=== PATIENT | male | born 1975 | race Caucasian/White ===

== ENCOUNTER 2024-05-09 11:51 | Inpatient (IN) | payer OTHER ==
[~2024-05-09] VITALS: Ht 185.4 cm; Wt 83.9 kg
[2024-05-09] MEDS ORDERED: HYDROmorphone HCl/Pf 1MG SYR IV ONE ×2 (12:10→13:20)
[2024-05-09 12:17] LABS: BASOPHILS ABSOLUTE AUTO 0.09 K/mm3 (0.00-0.23); BASOPHILS PERCENT AUTO 1 % (0-2); EOSINOPHILS ABSOLUTE AUTO 0.05 K/mm3 (0.00-0.68); EOSINOPHILS PERCENT AUTO 1 % (0-6); Hematocrit 33.1 % (37.0-53.0); Hemoglobin 11.8 g/dL (13.5-17.5); IMMATURE GRAN ABSOLUTE AUTO 0.04 K/mm3 (0.00-0.10); IMMATURE GRAN PERCENT AUTO 1 % (0-1); LYMPHOCYTES ABSOLUTE AUTO 0.96 K/mm3 (0.84-5.20); LYMPHOCYTES PERCENT AUTO 14 % (21-46); MONOCYTES ABSOLUTE AUTO 0.76 K/mm3 (0.16-1.47); MONOCYTES PERCENT AUTO 11 % (4-13); Mean Corpuscular HGB 30.8 pg (26.0-34.0); Mean Corpuscular HGB Conc 35.6 g/dL (31.5-36.5); Mean Corpuscular Volume 86 fL (80-100); Mean Platelet Volume 8.9 fL (9.1-12.4); NEUTROPHILS ABSOLUTE AUTO 5.21 K/mm3 (1.96-9.15); NEUTROPHILS PERCENT AUTO 73 % (41-73); Platelet Count 141 K/mm3 (150-400); RDW Coefficient Variation 12.5 % (11.7-14.2); RDW Standard Deviation 39.1 fL (35.1-46.3); Red Blood Cell Count 3.83 M/mm3 (4.30-5.90); White Blood Cell Count 7.11 K/mm3 (4.00-11.30)
[2024-05-09 12:50] LABS: Albumin, Blood 2.9 g/dL (3.4-5.0); Albumin/Globulin Ratio 0.7 (0.8-1.8); Bun/Creatinine Ratio 10.1 (12.0-20.0); C-Reactive Protein, High Sens. 30.5 mg/dL (0.000-3.000); Calcium, Blood 8.7 mg/dL (8.5-10.1); Creatinine, Blood 0.5 mg/dL (0.60-1.20); Globulin, Blood 4.4 g/dL (2.2-4.0); Potassium, Blood 3.2 mmol/L (3.5-5.5); Total Protein, Blood 7.3 g/dL (6.4-8.2)
[2024-05-09] MEDS ORDERED: Ketorolac Tromethamine 15mg Vial IV ONE (13:15)
[2024-05-09] MEDS ORDERED: Ketamine HCL 10 MG in NS 100 ML IV ONE (13:20)
[2024-05-09] MEDS ORDERED: CeFAZolin Sodium 2,000 MG in NS 100 ML IV ONE (13:55)
[2024-05-09] MEDS ORDERED: NS KCl 20mEq 1,000 ML IV SCH (15:15)
[2024-05-09] MEDS ORDERED: Ondansetron HCl 2 MG / ML 2ML Vial IV PRN (15:15)
[2024-05-09] MEDS ORDERED: fentaNYL citrate 50 MCG/ML 30MLSYR IV PRN (15:50)
[2024-05-09] MEDS ORDERED: HYDROmorphone 1 MG/ML 30 ML Bag IV PRN (16:00)
[2024-05-09 16:24] VITALS: BP 127/86
[2024-05-09] MEDS ORDERED: OXYC15ER PO (17:35)
[2024-05-09] MEDS ORDERED: CREON DR 12,001 EACH PO (17:35)
[2024-05-09] MEDS ORDERED: FAMO40 PO (17:36)
--- NOTE | 2024-05-09 17:55 | NUR ---
ARRIVED FROM ED VIA BA, AWAKE, A&OX4, C/O PAIN 10/10 ON R HIP AND R FOOT, REPORTS HAVING SOME NUMBNESS ON R LEG, STATES ER PROVIDER WAS MADE AWARE, R FOOT APPEARS SWOLLEN AND RED, PT REPORTS HE HAD SURGERY ON R FOOT EARLIER THIS YEAR AND WAS IN A BOOT AND HAS FALLEN TWICE SINCE, CAP REFILL 3 SEC ON R FOOT, ABLE TO MOVE TOES AND ABLE TO FEEL TOUCH, PT USING MANAGER MATH FENTANYL FOR PAIN CONTROL, ORIENTED TO ROOM AND CALL SYSTEM, ICE TO R HIP.
--- NOTE | 2024-05-09 19:56 | NUR ---
PAIN PT REPORTED INADEQUATE PAIN RELIEF WITH FENTANYL ASSOCIATE PROFESSOR OF LITERACY. SPOKE WITH YIGN FITZPATRICK NP. AND MADE HIM AWARE OF PT ALLERGIES. HE ORDERED OXYCODONE 5 MG Q 4HR PRN. PT REPORTS HE HAS TAKEN OXYCODONE BEFORE WITH NO ISSUES. AND WOULD LIKE TO TRY THE OXYCODONE WITH FENTANYL ASSOCIATE PROFESSOR OF LITERACY FOR BETTER PAIN CONTROL.
[2024-05-09] MEDS ORDERED: OxyCODONE HCL 5 MG TAB PO PRN (20:00)
[2024-05-09 20:14] VITALS: BP 123/68
[2024-05-09] MEDS ORDERED: Lactobacil 2-S.Thermo-Bifido 1 1 Cap PO SCH (21:00)
[2024-05-09] MEDS ORDERED: Famotidine 10 MG/ML 2ML Vial IV SCH (21:00)
[2024-05-09] MEDS ORDERED: CeFAZolin Sodium 2,000 MG in NS 100 ML IV SCH (22:00)
[2024-05-09] MEDS ORDERED: HydrOXYzine Pamoate 25 MG Cap PO PRN (22:10)
[2024-05-09] MEDS ORDERED: HYDROmorphone HCl 2 MG Tab PO PRN (22:10)
--- NOTE | 2024-05-09 22:10 | NUR ---
PAIN MANAGEMENT PT REPORTS THAT OXYCODONE WITH FENTANYL CODIFIER HAS BEEN INEFFECTIVE FOR PAIN. PT STILL REPORTING SEVERE PAIN. REACHED OUT AGAIN TO YING FITZPATRICK NP. REGARDING PT PAIN. NOTIFIED HIM THAT PAIN HAS NOT BEEN MANANGED WITH ABOVE INTERVENTIONS. MEDICATION ORDERED FOR ANXIETY. OXYCODONE DC'D, AND PO DILAUDID ORDERED INSTEAD. PT HAS RECEIVED DILAUDID IN ER. FENTANYL CODIFIER TO BE CONTINUED PER ORDERS.
[2024-05-10 03:18] VITALS: BP 159/90
[2024-05-10 03:33] LABS: Hematocrit 32.5 % (37.0-53.0); Hemoglobin 11.4 g/dL (13.5-17.5); Mean Corpuscular HGB 30.5 pg (26.0-34.0); Mean Corpuscular HGB Conc 35.1 g/dL (31.5-36.5); Mean Corpuscular Volume 87 fL (80-100); Platelet Count 121 K/mm3 (150-400); RDW Coefficient Variation 12.4 % (11.7-14.2); RDW Standard Deviation 39.5 fL (35.1-46.3); Red Blood Cell Count 3.74 M/mm3 (4.30-5.90); White Blood Cell Count 6.71 K/mm3 (4.00-11.30)
[2024-05-10 03:57] LABS: Magnesium, Blood 1.3 mg/dL (1.6-2.4)
[2024-05-10 03:58] LABS: Albumin, Blood 2.6 g/dL (3.4-5.0); Albumin/Globulin Ratio 0.6 (0.8-1.8); Bun/Creatinine Ratio 13.2 (12.0-20.0); Calcium, Blood 8.2 mg/dL (8.5-10.1); Creatinine, Blood 0.45 mg/dL (0.60-1.20); Total Protein, Blood 6.6 g/dL (6.4-8.2)
--- NOTE | 2024-05-10 06:01 | NUR ---
SHIFT SUMMARY PT ER ADMIT YESTERDAY AFTERNOON FOR R HIP FRACTURE. PT WAS VERY PAINFUL AT THE START OF THE SHIFT, AND PAIN MANAGEMENT WAS DIFFICULT. MEDICATIONS WERE SUCCESSFULLY MANAGED THIS SHIFT FOR BETTER PAIN CONTROL. PT CONTINUES ON FENTANYL CURRICULUM AND ASSESSMENT DIRECTOR, AND PO DILAUDID PRN FOR BREAKTRHOUGH PAIN. PLAN IS FOR POSSIBLE SURGERY TODAY. PT HAS BEEN NPO SINCE MIDNIGHT. VITALS ARE STABLE. IVF INFUSING. BED IN LOWEST POSITION, CALL LIGHT WITHIN REACH.
[2024-05-10] MEDS ORDERED: NS 250 ML IV PRN (06:10)
[2024-05-10 07:13] VITALS: BP 145/86
[2024-05-10] MEDS ORDERED: Magnesium Sulf 2 GM/Water 50ML 50 ML IV STA (07:41)
[2024-05-10] MEDS ORDERED: Potassium Chloride 40 MEQ in NS 250 ML IV ONE (07:45)
[2024-05-10] MEDS ORDERED: Polyethylene Glycol 3350 17 gm PO PRN (14:00)
[2024-05-10] MEDS ORDERED: HYDROmorphone HCl 2 MG Tab PO PRN (14:00)
[2024-05-10 16:02] VITALS: BP 155/89
--- NOTE | 2024-05-10 18:47 | NUR ---
SHIFT SUMMARY PT A&OX4, VSS/RA, FOUZIA PO, VOIDING/URINAL, BEDREST, PAIN MANAGED WITH DISPATCHER MAINTENANCE SERVICE+PO DIL 2 MG TAB, PLAN FOR NPO MN AND O.R. IN TOMORROW, IVF/ABX PER EMAR. WILL REPORT TO ONCOMING NOC RN.
[2024-05-10 20:07] VITALS: BP 144/80
[2024-05-10] MEDS ORDERED: Docusate Sodium/Senna 1 Tab PO SCH (21:00)
[2024-05-11 04:21] VITALS: BP 128/80
[2024-05-11 04:27] LABS: Magnesium, Blood 1.6 mg/dL (1.6-2.4)
[2024-05-11 04:28] LABS: Bun/Creatinine Ratio 12.7 (12.0-20.0); Calcium, Blood 8.4 mg/dL (8.5-10.1); Creatinine, Blood 0.47 mg/dL (0.60-1.20); Potassium, Blood 3.5 mmol/L (3.5-5.5)
[2024-05-11 07:17] VITALS: BP 141/82
--- NOTE | 2024-05-11 07:26 | NUR ---
SUMMARY PT NPO SINCE MIDNOC,CIRC CKS INTACT,REQUIRING FENT AND DILAUDID PO,VOIDING AND PENDING OR TODAY.
[2024-05-11 15:07] VITALS: BP 137/88
[2024-05-11] MEDS ORDERED: OxyCODONE HCL 5 MG TAB PO SCH (18:00)
[2024-05-11] MEDS ORDERED: Acetaminophen 500 MG Tab PO PRN (18:00)
--- NOTE | 2024-05-11 18:17 | NUR ---
SHIFT SUMMARY S/P R HIP FX WITH R FOOT FX, PLAN FOR OR TOMORROW. PO DILAUDID, PO OXY, AND FENT PAVER LAYER IN PLACE WITH NO DEPRESSION OF RESP SYSTEM, PT CONSISTENTLY REPORTS 8-10 ON 0-10 PAIN SCALE BUT DOES NOT APPEAR TO BE AT THAT RATING USING OTHER PAIN SCALES (FACE OR FLACC). NO ACUTE EVENTS THIS SHIFT, CALL LIGHT IN REACH.
[2024-05-11 20:07] VITALS: BP 127/73
[2024-05-12] VITALS (19 sets, daily range): BP systolic 86–146; BP diastolic 53–92
--- NOTE | 2024-05-12 05:42 | NUR ---
SHIFT SUMMARY NO ACUTE CHANGES THIS SHIFT. RLE REMAINS ELEVATED ON PILLOWS. FENTANYL DISTRIBUTION ASSOCIATE + ORAL CASIMIRO + ORAL DILAUDID FOR PAIN CONTROL. CONT BIOX IN PLACE. PT USING URINAL TO VOID. NPO FOR POSSIBLE PROCEDURE TODAY. VSS. USES CALL LIGHT APPROPRIATELY.
[2024-05-12] MEDS ORDERED: Ketorolac Tromethamine 30mg Vial IV PRN (08:20)
[2024-05-12] MEDS ORDERED: OxyCODONE HCL 5 MG TAB PO PRN (11:02)
--- NOTE | 2024-05-12 11:08 | NUR ---
Pt. is awake in bed and welcomes my visit. Pt. displays evidence of having pain, and at least twice during my visit pushed his medicine button. Faclitated a life review. Pt. verbalized some difficult circumstances in his life but also verbalized some bad experiences with the worship. Listen with empathy and a calming presence. While Pt. was not comfortable with this helicopter officer praying for him, Pt. gave this helicopter officer permission to pray for him "on my own time," which I have done. Pt. verbalized graitude for the spiritual care visit and welcomed this helicopter officer to return.
[2024-05-12] MEDS ORDERED: Lactated Ringer's 1,000 ML IV SCH (12:00)
[2024-05-12] MEDS ORDERED: Tranexamic Acid 100 ML IV SCH ×2 (12:20→12:25)
--- NOTE | 2024-05-12 12:37 | NUR ---
PT HAS 20G IV TO LEFT FOREARM THAT FLUSHES WELL AND FLOWS TO GRAVITY.
--- NOTE | 2024-05-12 12:41 | NUR ---
PT BROUGHT FROM FLOOR TO DAY SURGERY FOR PROCEDURE. VSS. History, Chart, Medications and Allergies reviewed before start of procedure. Lungs clear T/O to Auscultation. Patient confirms NPO status and agrees with scheduled surgery. Pre-Op teaching done. Pt verbalizes understanding. PT BELONGINGS IN PERSONAL ROOM ON SURGICAL FLOOR.
--- NOTE | 2024-05-12 13:01 | NUR ---
Assumed pt care. Report from mary Prater. Pt reports 9/10 right hip pain. No prep done, however PAS and TEDS at bedside. Pt noted to have yellow sclera and skin appears slightly jaundiced as well.
[2024-05-12] MEDS ORDERED: Dexamethasone Sod Phos 10 MG/ML 1ML VIAL ONE (13:27)
[2024-05-12] MEDS ORDERED: propofoL 60 ML IV ONE (13:27)
[2024-05-12] MEDS ORDERED: Ondansetron HCl 2 MG / ML 2ML Vial ONE ×2 (13:27→17:16)
[2024-05-12] MEDS ORDERED: Midazolam HCl 1MG / ML 2ML Vial ONE (13:31)
[2024-05-12] MEDS ORDERED: FentaNYL Citrate 50 MCG/ML 2 ML Injection ONE ×3 (13:31→17:13)
--- NOTE | 2024-05-12 13:42 | NUR ---
DR. BARRIOS AT BEDSIDE. TIME OUT DONE FOR RIGHT FASCIA/ILIAC BLOCK. PT HR, SPO2, AND BP MONITORED THROUGH OUT PROCEDURE. PT PLACED ON 2 LITERS NASAL CANULA AND MAINTAINED SATS>90% PT GIVEN A TOTAL OF 2 VERSED AND 50 MCG OF FENTANYL FOR PROCEDURE.
[2024-05-12] MEDS ORDERED: Phenylephrine HCl 100 MCG/ML-NS 10MLSYR (1MG/10ML) ONE (14:29)
[2024-05-12] MEDS ORDERED: HYDROmorphone HCl/Pf 1MG SYR ONE (14:53)
--- NOTE | 2024-05-12 14:57 | NUR ---
05/12/24 [address] BARRIOS ANESTHESIA RECORD FOR BLOCK DONE IN PREOP.
[2024-05-12] MEDS ORDERED: Vasopressin 20 UNITS/ML 1ML Vial ONE (15:17)
[2024-05-12 16:19] LABS: Hematocrit 31.1 % (37.0-53.0); Hemoglobin 10.7 g/dL (13.5-17.5); Mean Corpuscular HGB 31.1 pg (26.0-34.0); Mean Corpuscular HGB Conc 34.4 g/dL (31.5-36.5); Mean Corpuscular Volume 90 fL (80-100); Mean Platelet Volume 9.1 fL (9.1-12.4); Platelet Count 130 K/mm3 (150-400); RDW Coefficient Variation 13.1 % (11.7-14.2); RDW Standard Deviation 42.5 fL (35.1-46.3); Red Blood Cell Count 3.44 M/mm3 (4.30-5.90); White Blood Cell Count 10.71 K/mm3 (4.00-11.30)
[2024-05-12] MEDS ORDERED: Bupivacaine 0.5% HCl 5 MG/ML 30MLVIAL ONE (16:45)
[2024-05-12] MEDS ORDERED: Lactated Ringer's 1,000 ML IV ONE (17:35)
--- NOTE | 2024-05-12 18:09 | NUR ---
SHIFT SUMMARY POD0 R POSTERIOR JAMISON, A/OX4, VSS, TOLERATING PO POST OPERATIVELY. HE ARRIVED TO THE FLOOR FROM PACU AT APPROX 1750, VERY SOMNOLENT BUT ASKING FOR PAIN MEDS, ABLE TO OPEN HIS EYES TO VERBAL STIMULI BUT DOESN'T KEEP THEM OPEN LONG, PACU REPORTS JUST GIVING HIM PAIN MEDS BEFORE BRINGING HIM OUT TO THE FLOOR. VITALS STABLE AT TIME OF ARRIVAL, ABDUCTION PILLOW IN PLACE BETWEEN HIS LEGS, LUNGS CLEAR, AQUACELL IN PLACE C/D/I, POLAR PACK IN PLACE AND ICE REFRESHED. WILL CONTINUE POST OP VITALS.
[2024-05-12] MEDS ORDERED: HYDROmorphone HCl/Pf 1MG SYR IV PRN (18:45)
[2024-05-13 03:19] VITALS: BP 140/82
[2024-05-13 06:01] LABS: Hematocrit 28.3 % (37.0-53.0); Hemoglobin 9.9 g/dL (13.5-17.5); Mean Corpuscular Volume 89 fL (80-100); Mean Platelet Volume 8.9 fL (9.1-12.4); Platelet Count 125 K/mm3 (150-400); RDW Coefficient Variation 12.7 % (11.7-14.2); RDW Standard Deviation 40.6 fL (35.1-46.3); Red Blood Cell Count 3.19 M/mm3 (4.30-5.90); White Blood Cell Count 11.22 K/mm3 (4.00-11.30)
--- NOTE | 2024-05-13 06:06 | NUR ---
SHIFT SUMMARY PT PAIN CONTROL MUCH IMPROVED POST OP. ORAL ROXICODONE + IV DILAUDID FOR BREAKTHROUGH PAIN MANAGMENT + POLAR PACK IN PLACE. CONT BIOX IN PLACE. AQUACEL DRESSING REMAINS CDI. ABDUCTOR PILLOW IN PLACE. PT USING URINAL TO VOID AND FOUZIA PO. PLAN TO WORK WITH PT/OT TODAY. VSS. USES CALL LIGHT APPROPRIATELY.
[2024-05-13 06:41] LABS: Bun/Creatinine Ratio 24.1 (12.0-20.0); Calcium, Blood 8.5 mg/dL (8.5-10.1); Creatinine, Blood 0.5 mg/dL (0.60-1.20); Magnesium, Blood 1.7 mg/dL (1.6-2.4); Potassium, Blood 4.4 mmol/L (3.5-5.5)
[2024-05-13 07:21] VITALS: BP 131/70
[2024-05-13 15:56] VITALS: BP 128/73
--- NOTE | 2024-05-13 17:04 | NUR ---
SHIFT SUMMARY: POD 1 RIGHT POSTERIOR HIP PATIENT IS A&OX4. VS ARE WNL AND IS ON RA. PATIENT REPORTS 9/10 PAIN EVEN WITH PO 15 MG OF OXY AND IV DILAUDID PER EMAR. HIS LEFT HIP HAS AQUACEL DRESSING THAT IS C/D/I. DENIES NUMBNESS OR TINGLING IN ALL EXTREMITIES. PATIENT WORKED WITH PHYSICAL THERAPY TODAY AND WAS ABLE TO STAND AT THE SIDE OF THE BED WITH FWW AND GAIT BELT AND ORTHO SHOE ON THE RIGHT FOOT. HE IS TOLERATING PO INTAKE AND IS VOIDING. PATIENT IS LAYING IN BED WITH CALL LIGHT IN REACH. PATIENT CALLS APPROPRIATELY. THE PLAN IS TO DISCHARGE TO SNF WHEN APPROVED BY INSURANCE AND TO ALSO CONTINUE TO MANAGE PAIN.
[2024-05-13 20:01] VITALS: BP 116/84
[2024-05-13] MEDS ORDERED: OxyCODONE HCL 5 MG TAB PO PRN (22:20)
[2024-05-14 04:44] VITALS: BP 138/81
--- NOTE | 2024-05-14 05:39 | NUR ---
SUMMARY PT REQUESTED JASPREET INCREASED FREQ TO Q 4 HR TONIGHT AND I SPOKE WITH YING WHO GAVE ORDER FOR THIS.PT REPORTS IMPROVED PAIN CONTROL.
[2024-05-14 07:11] VITALS: BP 122/79
[2024-05-14] MEDS ORDERED: Famotidine 20 MG Tab PO SCH (09:00)
[2024-05-14 15:46] VITALS: BP 128/74
--- NOTE | 2024-05-14 18:17 | NUR ---
SHIFT SUMMARY POD 2 R POSTERIOR HIP. NO ACUTE CHANGES TODAY. VSS, ENC IS USE. PT SLEPT T/O A MAJORITY OF THE DAY. TOLERATING ORALS, ENCOURAGE PO INTAKE. IV ABX INFUSING PER EMAR. PT VOIDING USING URINAL. NO BM, PT REFUSING BOWEL CARE. PT REFUSING BOWEL CARE R/T NOT WANTING TO USE BEDPAN SINCE PT FEELS HE CANNOT STAND/PIVOT TO BSC. ENC PT TO ACCEPT BOWEL CARE. PT REFUSED PHYSCIAL & OCCUPATIONAL THERAPY TODAY; PT STATED HE WAS IN TOO MUCH PAIN IN R HIP AND JUST WANTED TO SLEEP. ENC PT TO PARTICIPATE IN PHYSCIAL ACTIVITY. PT PAIN MANAGED PER EMAR- PO 15mg OXY Q4, PT REPORTS HE CAN ACHIEVE 8/10 GOAL FOR PAIN WITH CURRENT REGIMENT. PT FITTED WITH NEW RLE WALKING BOOT TODAY. CALL LIGHT IN REACH, BED IN LOWEST POSITION, WILL REPORT TO SARINA RN.
[2024-05-14 19:56] VITALS: BP 108/65
[2024-05-15 05:29] VITALS: BP 109/70
--- NOTE | 2024-05-15 05:51 | NUR ---
SHIFT SUMMARY POD3 R JAMISON, DRESSING REMAINS C/D/I. SENSATION AND CIRCULATION REMAIN INTACT. VSS. PT SLEPT ON AND OFF T/O THE NIGHT. TOLLERATING PO INTAKE W/O N/V. VOIDING INTO URINAL W/O DIFFICULTY, DARK URINE NOTED. PT REPORTS THIS IS BASELINE FOR HIM D/T CHRONIC PANCREATISIS. MEDICATED FOR PAIN Q4 WITH OXY, STILL REPORTING HIGH LEVELS OF PAIN BUT DID NOT REQUIRE IV PAIN MEDICATION. PT DID NOT GET OOB. OVERALL NO ACUTE EVENTS NOTED. PLAN TO DEVELOP BETTER PAIN CONTROL AND GET AMBULATING WITH PT/OT.
[2024-05-15 08:14] VITALS: BP 115/76
[2024-05-15] MEDS ORDERED: Ibuprofen 600 MG Tab PO SCH (09:50)
[2024-05-15 14:24] VITALS: BP 117/67
--- NOTE | 2024-05-15 17:26 | NUR ---
SHIFT SUMMARY: POD 3 RIGHT TOTAL HIP - POSTERIOR PATIENT IS A&OX4. VS ARE WNL AND IS ON RA. PATIENT RATES HIS PAIN 8-9/10 WHICH PATIENT STATES "THIS HAS BEEN THE BEST MY RIGHT HIP HAS FELT SINCE BEING HERE, BUT IS STILL PAINFUL WITH WALKING". PAIN HAS BEEN MANAGED WITH PO OXY AND ADVIL WELL THE POLAR PACK. PATIENTS ANXIETY HAS BEEN MANAGED WITH PO VISTARIL. HIS RIGHT HIP HAS AN AQUACEL DRESSING THAT IS C/D/I. HE DENIES NUMBNESS OR TINGLING THROUGHOUT ALL EXTREMITIES. HE IS A SBA WITH FWW AND GAIT BELT. PATIENT IS TOLERATING PO INTAKE AND IS VOIDING. HE IS CURRENTLY LAYING IN THE RECLINER CHAIR WITH LEGS ELEVATED AND CALL LIGHT IN REACH. PATIENT CALLS APPROPRIATELY.
--- NOTE | 2024-05-15 17:30 | NUR ---
Pt. is awake in his recliner when he welcomes my visit. Pt. is pleasant and verbalized what he felt was frustrating progress in his recovery. pt. also verbalized that he was well cared for by the staff. Pt. displayed evidence of being strengthered by his recovery. Considered matters about family and the logistics of long-term care. The Pt. verbalized gratitude for the spiritual care visit. Consistant with a previous visit, I prayed for the Pt. after I left.
[2024-05-15 19:40] VITALS: BP 104/74
[2024-05-15] MEDS ORDERED: DiphenhydrAMINE HCl 50 MG/ML 1ML Vial IV ONE (19:50)
--- NOTE | 2024-05-15 22:49 | NUR ---
MEDICATION UPDATE AT ABOUT 1940 THE PATIENT REPORTED HE WAS HAVING ALLERGY LIKE SYMPTOMS TO SOME ADVIL HE HAD TAKEN ON DAY SHIFT. PT WAS NOTED TO BE SHAKING IN THE BED, REPORTS GI UPSET, ITCHY MOUTH/HANDS, AND "NOT FEELING RIGHT". VITALS IMMEDIATELY TAKEN AND ASSESSMENT PERFORMED. NO ACUTE FINDINGS NOTED. THIS RN REACHED OUT TO THE HOSPITALIST AND OBTAINED A ONE TIME ORDER FOR 25 IV BENADRYL. THE MED WAS THEN GIVEN TO THE PATIENT AND MONITORED Q30 MINUTES FOR THE NEXT 3 HOURS. PT REPORTS A DECREASE IN SYMPTOMS BUT OVERALL IS STILL NOT FEELING WELL. PT REPORTS HE WILL NOT BE TAKING ANY MORE NSAIDS AT THIS FACILITY. THE PATIENT HAS BEEN MEDICATED FOR PAIN AND ANXIETY, IS CURRENTLY RESTING, IN NO DISTRESS, CALL LIGHT IN REACH
[2024-05-16 04:02] VITALS: BP 103/63
--- NOTE | 2024-05-16 04:16 | NUR ---
SHIFT SUMMARY POD4 L JAMISON. DRESSING IS C.D.I. SENSATION AND CIRCULATION REMAIN INTACT. VSS. PT SLEPT ON AND OFF T/O THE NIGHT. DID NOT GET OOB. UTILIZED URINAL T/O THE NIGHT. TOLLERATING PO INTAKE W/O N/V. MEDICATED FOR PAIN AND ANXIETY PER EMAR, PT REPORTING HIGH LEVELS OF PAIN T/O THE NIGHT. OVERALL, NO ACUTE EVENTS NOTED. PLEASE SSEE PREVIOUS NOTE FOR UPDATE ON THE PATIENT AND NSAID ADMINISTRATION
[2024-05-16 07:33] VITALS: BP 101/57
[2024-05-16 14:02] VITALS: BP 94/57
--- NOTE | 2024-05-16 18:22 | NUR ---
SHIFT SUMMARY POD4 R POSTERIOR JAMISON, A/OX4, VSS, TOLERATING PO, PAIN MANAGMENT IMPROVED HE IS ABLE TO GO MORE THAN 4 HOURS BETWEEN DOSES OF PAIN MEDICATION, ABLE TO AMBULATE TO THE BATHROOM USING FWW WITHOUT ASSISTANCE BUT CALLS TO HAVE STAFF IN THE ROOM WHEN HE GETS UP. NO ACUTE EVENTS THIS SHIFT, CALL LIGHT IN REACH.
[2024-05-16 20:19] VITALS: BP 111/64
[2024-05-17 02:51] VITALS: BP 99/62
--- NOTE | 2024-05-17 05:31 | NUR ---
SHIFT SUMMARY NOC. PT POD 5 FOR R TOTAL HIP. PT'S AQUACEL IS C/D/I. PT VOIDING URINE VIA URINAL AND ATE LOTS OF SNACKS THIS SHIFT. PT MEDICATED FOR PAIN WITH SOME REPORTED RELIEF. PT AWAKE DURING ROUNDS AND DENIED SLEEPING WHEN ASKED. PT CALLS APPROPRIATLY AND RESTED IN BED. CALL LIGHT IN REACH.
[2024-05-17 07:36] VITALS: BP 110/73
[2024-05-17] MEDS ORDERED: Polyethylene Glycol 3350 17 gm PO SCH (09:00)
[2024-05-17 12:08] LABS: BASOPHILS ABSOLUTE AUTO 0.06 K/mm3 (0.00-0.23); BASOPHILS PERCENT AUTO 1 % (0-2); EOSINOPHILS ABSOLUTE AUTO 0.45 K/mm3 (0.00-0.68); EOSINOPHILS PERCENT AUTO 8 % (0-6); Hematocrit 25.7 % (37.0-53.0); Hemoglobin 8.9 g/dL (13.5-17.5); IMMATURE GRAN ABSOLUTE AUTO 0.18 K/mm3 (0.00-0.10); IMMATURE GRAN PERCENT AUTO 3 % (0-1); LYMPHOCYTES PERCENT AUTO 24 % (21-46); MONOCYTES ABSOLUTE AUTO 0.79 K/mm3 (0.16-1.47); MONOCYTES PERCENT AUTO 13 % (4-13); Mean Corpuscular HGB Conc 34.6 g/dL (31.5-36.5); Mean Corpuscular Volume 90 fL (80-100); Mean Platelet Volume 8.8 fL (9.1-12.4); NEUTROPHILS ABSOLUTE AUTO 3.03 K/mm3 (1.96-9.15); NEUTROPHILS PERCENT AUTO 51 % (41-73); Platelet Count 173 K/mm3 (150-400); RDW Coefficient Variation 12.9 % (11.7-14.2); RDW Standard Deviation 42.1 fL (35.1-46.3); Red Blood Cell Count 2.87 M/mm3 (4.30-5.90); White Blood Cell Count 5.91 K/mm3 (4.00-11.30)
[2024-05-17] MEDS ORDERED: Pantoprazole Sodium 40 MG Tab PO SCH (16:30)
[2024-05-17 16:31] VITALS: BP 106/73
--- NOTE | 2024-05-17 18:18 | NUR ---
SHIFT SUMMARY POD5 R POSTERIOR JAMISON, A/OX4, VSS, TOLERATING PO, PAIN WELL MANAGED, ABLE TO AMBULATE TO THE BATHROOM WITH MINIMAL ASSISTANCE, REFUSED TO BE UP TO CHAIR STATING JUST GETTING UP TO THE BATHROOM WEARS HIM OUT, REFUSES TO WEAR ORTHO SHOE BUT ABLE TO MAINTAIN NWB RLE WITHOUT ORDERED. ONE BM TODAY WITH BLOOD IN THE TOILET ( NOTIFIED), SMALL DROP IN H&H FROM PRIOR DRAW ON 05/13. PT ENCOURAGED TO NOT SPEND ALL DAY IN THE DARK, CURTAINS OPENED TO ENCOURGE HIM TO BE AWAKE DURING THE DAY. NO OTHER EVETNS THIS SHIFT, CALL LIGHT IN REACH.
[2024-05-17 19:49] VITALS: BP 111/71
[2024-05-18 04:06] LABS: BASOPHILS ABSOLUTE AUTO 0.08 K/mm3 (0.00-0.23); BASOPHILS PERCENT AUTO 1 % (0-2); EOSINOPHILS ABSOLUTE AUTO 0.49 K/mm3 (0.00-0.68); EOSINOPHILS PERCENT AUTO 6 % (0-6); Hematocrit 24.9 % (37.0-53.0); Hemoglobin 8.4 g/dL (13.5-17.5); Mean Corpuscular HGB 30.3 pg (26.0-34.0); Mean Corpuscular HGB Conc 33.7 g/dL (31.5-36.5); Mean Corpuscular Volume 90 fL (80-100); Mean Platelet Volume 8.3 fL (9.1-12.4); Platelet Count 183 K/mm3 (150-400); RDW Coefficient Variation 12.9 % (11.7-14.2); RDW Standard Deviation 42.5 fL (35.1-46.3); Red Blood Cell Count 2.77 M/mm3 (4.30-5.90); White Blood Cell Count 7.96 K/mm3 (4.00-11.30)
[2024-05-18 04:08] VITALS: BP 108/64
[2024-05-18 04:10] LABS: IMMATURE GRAN ABSOLUTE AUTO 0.22 K/mm3 (0.00-0.10); IMMATURE GRAN PERCENT AUTO 3 % (0-1); LYMPHOCYTES ABSOLUTE AUTO 2.22 K/mm3 (0.84-5.20); LYMPHOCYTES PERCENT AUTO 28 % (21-46); MONOCYTES ABSOLUTE AUTO 1.32 K/mm3 (0.16-1.47); MONOCYTES PERCENT AUTO 17 % (4-13); NEUTROPHILS ABSOLUTE AUTO 3.63 K/mm3 (1.96-9.15); NEUTROPHILS PERCENT AUTO 46 % (41-73)
[2024-05-18 04:40] LABS: Bun/Creatinine Ratio 22.8 (12.0-20.0); Calcium, Blood 8.2 mg/dL (8.5-10.1); Creatinine, Blood 0.61 mg/dL (0.60-1.20); Potassium, Blood 4.1 mmol/L (3.5-5.5)
--- NOTE | 2024-05-18 06:21 | NUR ---
SHIFT SUMMARY POD#6 R.HIP NO ACUTE CHANGES NOTED THROUGH THE NIGHT, A&O X4, RA, VSS, PAIN MANAGED PER EMAR, FOUZIA PO, VOIDING WNL, NO BM'S OVER NIGHT, DENIES ABD PAIN/NAUSEA, NESTOR BURROUGHS C/D/I, POLAR ANGELA IN PLACE, RESTING QUIETLY IN BED THIS AM, CALL LIGHT IN REACH
[2024-05-18 07:22] VITALS: BP 114/71
[2024-05-18] MEDS ORDERED: OxyCODONE HCL 5 MG TAB PO PRN (12:15)
[2024-05-18] MEDS ORDERED: Amylase/Lipase/Protease DR Cap 12,000 PO SCH (12:30)
[2024-05-18 14:43] VITALS: BP 102/68
[2024-05-18 19:43] VITALS: BP 114/63
--- NOTE | 2024-05-18 19:47 | NUR ---
SHIFT SUMMARY PT IS POD#6. PT REPORTS PAIN MANAGED WHILE AT REST WITH OXYCODONE. OXYCODONE DOSE INCREASED BY DR. CARL FOR THERAPY ONLY. PT USES CALL LIGHT APPROPRIATELY. HE IS A 1 PERSON ASSIST. PT TOLERATING PO. WAITING FOR PLACEMENT.
[2024-05-19 03:55] VITALS: BP 105/67
--- NOTE | 2024-05-19 05:27 | NUR ---
SUMMARY- PT CONTINUES TO HAVE PAIN. PT REPORTED SOME RELIEF. PT STATED HE SLEPT VERY LITTLE. PT HAS BEEN VOIDING WELL. NO OTHER COMPLAINTS. CALL LIGHT IN REACH.
[2024-05-19 07:30] VITALS: BP 103/64
[2024-05-19 15:17] VITALS: BP 100/59
--- NOTE | 2024-05-19 15:35 | NUR ---
DRESSING CHANGE AQUACEL DRESSING REMOVED AND CLEAN AQUACEL DRESSING PLACED.
--- NOTE | 2024-05-19 17:11 | NUR ---
SHIFT SUMMARY PT IS POD#7 FROM R HIP REPAIR. PT IS WAITING FOR SNF VS HOME WITH HOME HEALTH. OXY FOR PAIN, PT REPORTS PAIN NOT MANAGED WITH THERAPY, PT GIVEN INCREASED DOSE OF OXY PRIOR TO THERAPY. PT TOLERATING PO. HE USES THE CALL LIGHT APPROPRIATELY.
[2024-05-19 19:10] VITALS: BP 109/62
[2024-05-20 02:05] VITALS: BP 97/58
--- NOTE | 2024-05-20 05:08 | NUR ---
SUMMARY- PT CONTINUES HAVE PAIN REQUIRING CONTINUED PAIN MEDS. PT HAS NOT SLEPT MUCH THIS SHIFT. NO OTHER ISSUES NOTED. PT CURRENTLY AWAKE WATCHING TV. CALL LIGHT IN REACH.
[2024-05-20 07:50] VITALS: BP 100/61
[2024-05-20 16:04] VITALS: BP 120/73
--- NOTE | 2024-05-20 18:59 | NUR ---
SHIFT SUMMARY POD8 R POSTERIOR JAMISON, A/OX4, VSS, TOLERATING PO, PAIN WELL MANAGED, WORKING WITH THERAPY, PENDING DC TO SNF ONCE INSURANCE AUTH IS OBTAINED. NO ACUTE EVENTS THIS SHIFT, CALL LIGHT IN REACH
[2024-05-20 19:18] VITALS: BP 106/71
[2024-05-20] MEDS ORDERED: ClonazePAM 0.5 MG Tab PO SCH (21:00)
[2024-05-21 03:21] VITALS: BP 101/61
--- NOTE | 2024-05-21 06:23 | NUR ---
SHIFT SUMMARY NOC. PT S/P RIGHT POSTERIOR HIP. PT A/O X4. PT VOIDING URINE, AND TOLERATING PO. PT'S AQUACEL IS C/D/I. PT MEDICATED FOR PAIN AND ANXIETY THIS SHIFT. PT AWAKE FREQUENTLY DURING THE NIGHT. PT RESTED IN BED WITH CALL LIGHT IN REACH.
[2024-05-21 07:27] VITALS: BP 101/65
--- NOTE | 2024-05-21 15:15 | NUR ---
DISCHARGE SUMMARY POD9 R POSTERIOR JAMISON, A/OX4, VSS, TOLERATING PO, PAIN WELL MANAGED, REGULAR BM, VOIDING INDEPENDENTLY, ABLE TO AMBULATE IN THE ROOM WITH FWW KEEPING HIS R FOOT NWB WHILE NOT USING HIS ORTHO BOOT ON, COMPLIANT WITH POSTERIOR HIP PRECAUTIONS. ATTEMTED TO CHANGE DRESSING JUST PRIOR TO DISCHARGE, PT STATES IT WAS CHANGED 05/19. INFORMED HIM THAT IT WAS NOT DOCUMENTED SO WE COULD CHANGE IT TODAY BUT HE REFUSED. HE [facility] TO [facility] ([phone]), ALL PERSONAL POSESSIONS PACKED UP AND TAKEN WITH HIM AT THE TIME HE WAS PICKED UP. REPORT CALLED TO [facility] AND GIVEN BY THIS RN TO ESPINOZA. ALL QUESTIONS ANSWERED, CALL BACK NUMBER PROVIDED.
== END 2024-05-21 13:26 | DRG 522 ==
LOC: ER 11:51 → SURS 15:47
PROVIDERS: Anesthesiology; Emergency Medicine; Internal Medicine; Orthopaedic Surgery Sports Medicine; ADMIT Internal Medicine
PROC: 0SR90JZ Replacement of Right Hip Joint with Synthetic Substitute, Open Approach (ICD-10-PCS; principal; 2024-05-12 13:00)
DX: S72.141A Displaced intertrochanteric fracture of right femur, initial encounter for closed fracture (principal); K62.5 Hemorrhage of anus and rectum; K86.1 Other chronic pancreatitis; L03.115 Cellulitis of right lower limb; G89.29 Other chronic pain; S92.314A Nondisplaced fracture of first metatarsal bone, right foot, initial encounter for closed fracture; K59.00 Constipation, unspecified; E87.6 Hypokalemia; E83.42 Hypomagnesemia; M62.838 Other muscle spasm; F17.210 Nicotine dependence, cigarettes, uncomplicated; W01.0XXA Fall on same level from slipping, tripping and stumbling without subsequent striking against object, initial encounter; Z91.038 Other insect allergy status; Z88.8 Allergy status to other drugs, medicaments and biological substances; Z88.5 Allergy status to narcotic agent; Z91.010 Allergy to peanuts; Z98.890 Other specified postprocedural states; Z90.49 Acquired absence of other specified parts of digestive tract; Z79.899 Other long term (current) drug therapy
CPT/HCPCS: 36415; 72170; 72192; 73502; 73560-RT; 73630; 80048; 80053; 83605; 83690; 83735; 84145; 85025; 85027; 86141; 86850; 86900; 86901; 87040; 88304; 88311; 94762; 96374; 96375; 97110; 97116; 97162; 97166; 97530; 97535; 99285-25; A9270; C1776; J0690; J1100; J1170; J1200; J2250; J2371; J2405; J2704; J3010; J3475; J3480; J7050; J7120; Q0177

== ENCOUNTER 2024-09-05 15:30 | Inpatient (IN) | payer OTHER ==
[~2024-09-05] VITALS: Ht 185.4 cm; Wt 75.6 kg
[~2024-09-05 15:30] MED LIST: CREON DR 12,001 EACH PO; FAMO40 PO; OXYC15ER PO
[2024-09-05] MEDS ORDERED: FentaNYL Citrate 50 MCG/ML 2 ML Injection IV ONE (18:15)
[2024-09-05] MEDS ORDERED: HYDROmorphone HCl/Pf 1MG SYR IV ONE ×2 (18:50→21:50)
[2024-09-05 18:51] LABS: BASOPHILS ABSOLUTE AUTO 0.08 K/mm3 (0.00-0.23); BASOPHILS PERCENT AUTO 1 % (0-2); EOSINOPHILS ABSOLUTE AUTO 0.16 K/mm3 (0.00-0.68); EOSINOPHILS PERCENT AUTO 2 % (0-6); Hematocrit 34.6 % (37.0-53.0); Hemoglobin 11.3 g/dL (13.5-17.5); IMMATURE GRAN ABSOLUTE AUTO 0.02 K/mm3 (0.00-0.10); IMMATURE GRAN PERCENT AUTO 0 % (0-1); LYMPHOCYTES ABSOLUTE AUTO 2.22 K/mm3 (0.84-5.20); LYMPHOCYTES PERCENT AUTO 31 % (21-46); MONOCYTES ABSOLUTE AUTO 0.49 K/mm3 (0.16-1.47); MONOCYTES PERCENT AUTO 7 % (4-13); Mean Corpuscular HGB 25.3 pg (26.0-34.0); Mean Corpuscular HGB Conc 32.7 g/dL (31.5-36.5); Mean Corpuscular Volume 77 fL (80-100); Mean Platelet Volume 10.9 fL (9.1-12.4); NEUTROPHILS ABSOLUTE AUTO 4.27 K/mm3 (1.96-9.15); NEUTROPHILS PERCENT AUTO 59 % (41-73); Platelet Count 145 K/mm3 (150-400); RDW Coefficient Variation 17.2 % (11.7-14.2); RDW Standard Deviation 46.1 fL (35.1-46.3); Red Blood Cell Count 4.47 M/mm3 (4.30-5.90); White Blood Cell Count 7.24 K/mm3 (4.00-11.30)
[2024-09-05] MEDS ORDERED: Lactated Ringer's 1,000 ML IV SCH (19:05)
[2024-09-05 19:16] LABS: Albumin/Globulin Ratio 0.7 (0.8-1.8); Bilirubin, Total 1.7 mg/dL (0.1-1.0); Bun/Creatinine Ratio 13.9 (12.0-20.0); Calcium, Blood 8.3 mg/dL (8.5-10.1); Creatinine, Blood 0.86 mg/dL (0.60-1.20); Globulin, Blood 4.1 g/dL (2.2-4.0); Potassium, Blood 3.9 mmol/L (3.5-5.5); Total Protein, Blood 7.1 g/dL (6.4-8.2)
[2024-09-05] MEDS ORDERED: Ondansetron HCl 2 MG / ML 2ML Vial IV PRN (21:50)
[2024-09-05] MEDS ORDERED: Magnesium Hydroxide Conc 10 ML UDC PO PRN (21:50)
[2024-09-05] MEDS ORDERED: FLU VACC TS2024-25(6MOS UP)/PF 45 MCG/0.5 ML SYRINGE IM SCH (21:50)
[2024-09-05] MEDS ORDERED: HYDROmorphone HCl 2 MG Tab PO PRN (21:50)
[2024-09-05] MEDS ORDERED: NS 1,000 ML IV SCH (22:00)
[2024-09-05] MEDS ORDERED: NS 1,000 ML IV ONE (22:37)
[2024-09-05] MEDS ORDERED: Colace100 MG PO (23:17)
[2024-09-05 23:50] VITALS: BP 142/75
[2024-09-06] MEDS ORDERED: OxyCODONE HCL 5 MG TAB PO PRN (00:30)
[2024-09-06 02:51] VITALS: BP 170/88
[2024-09-06] MEDS ORDERED: Melatonin 3 MG Tab PO SCH (03:00)
[2024-09-06] MEDS ORDERED: Calcium Carbonate 500 MG Tab Chew PO SCH (03:00)
--- NOTE | 2024-09-06 03:43 | NUR ---
UPON ARRIVAL FROM THE ED, PATIENT WAS GIVEN 10 MG ROXICODONE PER EMAR FOR PAIN. THE PATIENT EXPRESSED HIS IRRITATION WITH THE "LOW" DOSAGE OF THE MEDICATION. PATIENT THEN REQUESTED TUMS AND SOMETHING TO HELP RELIEVE HIS ANXIETY AND HELP HIM SLEEP. THIS RN CONSULTED WITH RESIDENT DR CLIFTON, WHO ORDERED TUMS FOR HEARTBURN AND MELATONIN TO HELP THE PATIENT SLEEP. THE PATIENT REFUSED THE MELATONIN, STATING "ITS A JOKE". PATIENT BECAME INCREASINGLY AGITATED AND STATED "I JUST WANT TO LEAVE AND SLIT MY WRISTS". PATIENT BEGAN TO BUNCH UP HIS FISTS ANYTIME THIS RN APPROACHED HIM. AFTER STARTING THE PATIENT'S IV FLUIDS, THIS RN LEFT THE ROOM TO GIVE THE PATIENT SOME TIME TO CALM DOWN AND DISCUSSED THE ISSUE WITH BESS MCCONNELL RN.
[2024-09-06 04:26] LABS: BASOPHILS PERCENT AUTO 2 % (0-2); EOSINOPHILS ABSOLUTE AUTO 0.23 K/mm3 (0.00-0.68); EOSINOPHILS PERCENT AUTO 3 % (0-6); Hematocrit 35.8 % (37.0-53.0); Hemoglobin 11.8 g/dL (13.5-17.5); IMMATURE GRAN ABSOLUTE AUTO 0.03 K/mm3 (0.00-0.10); IMMATURE GRAN PERCENT AUTO 0 % (0-1); LYMPHOCYTES ABSOLUTE AUTO 2.19 K/mm3 (0.84-5.20); LYMPHOCYTES PERCENT AUTO 32 % (21-46); MONOCYTES ABSOLUTE AUTO 0.64 K/mm3 (0.16-1.47); MONOCYTES PERCENT AUTO 9 % (4-13); Mean Corpuscular HGB 25.5 pg (26.0-34.0); Mean Corpuscular Volume 77 fL (80-100); NEUTROPHILS ABSOLUTE AUTO 3.67 K/mm3 (1.96-9.15); NEUTROPHILS PERCENT AUTO 54 % (41-73); Platelet Count 133 K/mm3 (150-400); RDW Coefficient Variation 17.2 % (11.7-14.2); RDW Standard Deviation 46.1 fL (35.1-46.3); Red Blood Cell Count 4.63 M/mm3 (4.30-5.90); White Blood Cell Count 6.86 K/mm3 (4.00-11.30)
[2024-09-06 04:43] LABS: International Normalized Ratio 1.23
[2024-09-06 05:00] LABS: Triglycerides 63 mg/dL (30-160)
[2024-09-06 05:19] LABS: Bun/Creatinine Ratio 14.3 (12.0-20.0); Calcium, Blood 8.6 mg/dL (8.5-10.1); Creatinine, Blood 0.77 mg/dL (0.60-1.20); Potassium, Blood 3.6 mmol/L (3.5-5.5)
[2024-09-06 05:40] VITALS: BP 176/96
--- NOTE | 2024-09-06 06:25 | NUR ---
SHIFT SUMMARY PATIENT IS ALERT AND ORIENTED TO ALL. FULL CODE. PATIENT IS IRRITABLE AND VERY UPSET ABOUT HIS SITUATION. ABLE TO USE CALL LIGHT APPROPRIATELY AND MAKE NEEDS KNOWN. PATIENT GIVEN DOSE OF FAMOTIDINE EARLY THIS MORNING PRIOR TO SCHEDULED TIME DUE TO INCREASING HEARTBURN AND NAUSEA. BED IS IN LOWEST POSITION, AND CALL LIGHT IS WITHIN REACH. WILL RELAY ALL INFORMATION TO ONCOMING NURSE.
[2024-09-06] MEDS ORDERED: ChlordiazePOXIDE 25 MG Cap PO PRN (08:25)
[2024-09-06] MEDS ORDERED: HyDROXyzine HCl 25 MG Tab PO PRN (08:30)
[2024-09-06] MEDS ORDERED: fentaNYL citrate 20 MCG/ML 30MLSYR IV PRN (08:50)
[2024-09-06] MEDS ORDERED: Folic Acid 1 MG in NS 50 ML IV SCH (09:00)
[2024-09-06] MEDS ORDERED: Famotidine 10 MG/ML 2ML Vial IV SCH (09:00)
[2024-09-06] MEDS ORDERED: Thiamine HCl 100 MG in NS 50 ML IV SCH (09:00)
[2024-09-06] MEDS ORDERED: Lactulose 20 GM/30 ML UDC PO SCH (09:00)
[2024-09-06] MEDS ORDERED: Enoxaparin 40 MG/0.4 ML SYR SC SCH (09:00)
[2024-09-06 09:07] VITALS: BP 142/78
[2024-09-06] MEDS ORDERED: HYDROmorphone HCl/Pf 1MG SYR IV ONE (10:00)
[2024-09-06] MEDS ORDERED: Prochlorperazine Edisylate 10 mg Vial IV PRN (11:10)
[2024-09-06 15:12] VITALS: BP 140/90
[2024-09-06] MEDS ORDERED: NS 250 ML IV PRN (15:30)
--- NOTE | 2024-09-06 17:28 | NUR ---
SHIFT SUMMARY PT A&OX4, ABLE TO MAKE NEEDS KNOWN. BEGINNING OF SHIFT, PT WAS IRRITABLE AND IN ALOT OF PAIN (RATING 10), MEDICATED PER EMAR. VOMITING START OF SHIFT. TOOK 2 SHOWERS TODAY INDEPENDENTLY. INITIATED DEICER TESTER PUMP WITH FENTANYL, PT SEEMS TO BE DOING MUCH BETTER, STILL REPORTS OF PAIN, BUT NOTHING GRIMACING. PT WAS ABLE TO TOLERATE PO MED LIBRIUM AND TUMS WITHOUT VOMITING. GAVE PT GATORADE AND TOLD TO SIP, TOLERATING WELL. INFORMED THIS RN TO ADVANCE TO PO PAIN MEDICATION WHEN PT CAN TOLERATE. CALL LIGHT WITHIN REACH, BED IN LOWEST POSITION.
[2024-09-06 20:00] VITALS: BP 154/87
[2024-09-06] MEDS ORDERED: FentaNYL Citrate 50 MCG/ML 2 ML Injection IV ONE (23:05)
[2024-09-07 05:13] VITALS: BP 145/76
--- NOTE | 2024-09-07 05:19 | NUR ---
SHIFT SUMMARY PT A&OX4 AND ANSWERS QUESTIONS APPROPRIATELY. PT COMPLAINS OF ABDOMINAL PAIN AND A HEADACHE. MEDICATED PER EMAR. PT REQUESTS MULTIPLE SHOWERS PER SHIFT HE STATES THEY HELP WITH REDUCING THE PAIN. PT SHOWS INCREASED LEVELS OF FRUSTRATION TO HIS MOOD OCCASIONALY AND WILL REFUSE CARE. PT ABLE TO BE REDIRECTED. PT REFUSED ASSOCIATE MERCHANT FOR MOST OF NIGHT FROM AROUND 2300, UNTIL 0513 WHEN HE WAS RECONNECTED. VSS, NO COMPLAINTS OF CP/PRESSURE OR SOB. PT RECEIVED SCHEDULED AND PRN MEDS. PT SPENT MOST OF SHIFT IN BED WITH EYES CLOSED. NO ACUTE EVENTS AT THIS TIME. PT LEFT IN A POSITION OF SAFETY WITH FALL PRECAUTIONS IN PLACE, CALL LIGHT IN REACH. INDEPENDENTLY REPOSITIONED.
[2024-09-07 05:44] LABS: BASOPHILS ABSOLUTE AUTO 0.07 K/mm3 (0.00-0.23); BASOPHILS PERCENT AUTO 1 % (0-2); EOSINOPHILS ABSOLUTE AUTO 0.13 K/mm3 (0.00-0.68); EOSINOPHILS PERCENT AUTO 2 % (0-6); Hematocrit 34.7 % (37.0-53.0); Hemoglobin 11.3 g/dL (13.5-17.5); IMMATURE GRAN ABSOLUTE AUTO 0.03 K/mm3 (0.00-0.10); IMMATURE GRAN PERCENT AUTO 1 % (0-1); LYMPHOCYTES ABSOLUTE AUTO 1.79 K/mm3 (0.84-5.20); LYMPHOCYTES PERCENT AUTO 30 % (21-46); MONOCYTES ABSOLUTE AUTO 0.81 K/mm3 (0.16-1.47); MONOCYTES PERCENT AUTO 14 % (4-13); Mean Corpuscular HGB 25.5 pg (26.0-34.0); Mean Corpuscular HGB Conc 32.6 g/dL (31.5-36.5); Mean Corpuscular Volume 78 fL (80-100); Mean Platelet Volume 10.2 fL (9.1-12.4); NEUTROPHILS ABSOLUTE AUTO 3.15 K/mm3 (1.96-9.15); NEUTROPHILS PERCENT AUTO 53 % (41-73); Platelet Count 132 K/mm3 (150-400); RDW Coefficient Variation 17.2 % (11.7-14.2); RDW Standard Deviation 46.7 fL (35.1-46.3); Red Blood Cell Count 4.44 M/mm3 (4.30-5.90); White Blood Cell Count 5.98 K/mm3 (4.00-11.30)
[2024-09-07] MEDS ORDERED: FentaNYL Citrate 50 MCG/ML 2 ML Injection IV PRN (06:20)
[2024-09-07 06:29] LABS: Bun/Creatinine Ratio 10.9 (12.0-20.0); Creatinine, Blood 0.82 mg/dL (0.60-1.20); Potassium, Blood 3.8 mmol/L (3.5-5.5)
[2024-09-07 07:31] VITALS: BP 137/70
[2024-09-07] MEDS ORDERED: OxyCODONE HCL 5 MG TAB PO PRN (07:45)
[2024-09-07] MEDS ORDERED: Polyethylene Glycol 3350 17 gm PO PRN ×2 (08:10→17:05)
--- NOTE | 2024-09-07 12:20 | NUR ---
UPDATE PT STATES HE DOES NOT HAVE ANY PAIN AT ALL AT THIS TIME. PT STATES THIS IS THE FIRST TIME SINCE ADMISSION THAT HE HAS NOT BEEN IN PAIN. PT TOLERATING CLEAR LIQUID DIET AND NONFAT MILK. BOWEL CARE ADDED THIS AM. PT REPORTS NO BM FOR WEEKS.
[2024-09-07] MEDS ORDERED: TIZA4 PO (13:02)
[2024-09-07] MEDS ORDERED: OXYC5 PO (13:02)
[2024-09-07] MEDS ORDERED: NITR.4SL SL (13:02)
[2024-09-07] MEDS ORDERED: Nitroglycerin 0.4 MG SUBL SL PRN (14:35)
[2024-09-07] MEDS ORDERED: TiZANidine HCl 4 MG Tab PO PRN (14:35)
[2024-09-07 15:44] VITALS: BP 140/93
[2024-09-07] MEDS ORDERED: Amylase/Lipase/Protease DR Cap 12,000 PO SCH (17:30)
--- NOTE | 2024-09-07 18:01 | NUR ---
SHIFT SUMMARY PT REMAINS ALERT AND ORIENTED. PT CONTINUES TO DENY ANY PAIN. PT TOLERATING HEART HEALTHY DINNER TRAY WITHOUT ABD PAIN OR NAUSEA. PT UP INDEPENDENT IN THE ROOM. VS STABLE.
[2024-09-07 19:48] VITALS: BP 157/92
[2024-09-07] MEDS ORDERED: Sennosides 8.6 MG Tab PO SCH (21:00)
[2024-09-08 06:11] VITALS: BP 156/96
--- NOTE | 2024-09-08 06:31 | NUR ---
SHIFT SUMMARY PT A&OX4 AND ANSWERS QUESTIONS APPROPRIATELY. PT RECEIVED ALL SCHEDULED AND PRN MEDICATIONS WITH NO ADVERSE EFFECTS. PT VSS, NO COMPLAINTS OF CP/PRESSURE OR SOB. PT DID NOT HAVE ANY COMPLAINTS OF NAUSEA THIS SHIFT. PT REQUESTS NOT TO BE DISTURBED MORE THAN NECCESARY TO ENCOURAGE UNINTERUPTED REST. PT INDEPENDENT IN ROOM. NO ACUTE EVENTS AT THIS TIME. PT REPOSITIONED INDEPENDENTLY. PT LEFT IN A POSITION OF SAFETY WITH FALL PRECAUTIONS IN PLACE AND CALL LIGHT IN REACH.
[2024-09-08 06:53] LABS: BASOPHILS ABSOLUTE AUTO 0.05 K/mm3 (0.00-0.23); BASOPHILS PERCENT AUTO 1 % (0-2); EOSINOPHILS ABSOLUTE AUTO 0.24 K/mm3 (0.00-0.68); EOSINOPHILS PERCENT AUTO 4 % (0-6); Hematocrit 33.8 % (37.0-53.0); Hemoglobin 11.2 g/dL (13.5-17.5); IMMATURE GRAN ABSOLUTE AUTO 0.03 K/mm3 (0.00-0.10); IMMATURE GRAN PERCENT AUTO 1 % (0-1); LYMPHOCYTES ABSOLUTE AUTO 1.74 K/mm3 (0.84-5.20); LYMPHOCYTES PERCENT AUTO 30 % (21-46); MONOCYTES ABSOLUTE AUTO 0.75 K/mm3 (0.16-1.47); MONOCYTES PERCENT AUTO 13 % (4-13); Mean Corpuscular HGB 25.8 pg (26.0-34.0); Mean Corpuscular HGB Conc 33.1 g/dL (31.5-36.5); Mean Corpuscular Volume 78 fL (80-100); Mean Platelet Volume 10.1 fL (9.1-12.4); NEUTROPHILS ABSOLUTE AUTO 3.04 K/mm3 (1.96-9.15); NEUTROPHILS PERCENT AUTO 52 % (41-73); Platelet Count 118 K/mm3 (150-400); Red Blood Cell Count 4.34 M/mm3 (4.30-5.90); White Blood Cell Count 5.85 K/mm3 (4.00-11.30)
[2024-09-08 07:29] LABS: Albumin, Blood 3.1 g/dL (3.4-5.0); Albumin/Globulin Ratio 0.8 (0.8-1.8); Bilirubin, Total 2.3 mg/dL (0.1-1.0); Calcium, Blood 8.9 mg/dL (8.5-10.1); Creatinine, Blood 0.78 mg/dL (0.60-1.20); Potassium, Blood 3.8 mmol/L (3.5-5.5); Total Protein, Blood 7.1 g/dL (6.4-8.2)
[2024-09-08 08:08] VITALS: BP 134/83
[2024-09-08] MEDS ORDERED: Bisacodyl 10 MG Supp PR ONE (08:55)
--- NOTE | 2024-09-08 12:55 | NUR ---
AM NOTE: PATIENT ALERT AND ORIENTED. VERY SLEEPY THIS AM BUT WAKES TO VOICE. MEDICATED PER EMAR EARLY THIS AM FOR PAIN. DISCUSSES WITH THIS RN LONG STANDING HISTORY OF PANCREATITIS AND BACK PAIN. DENIES NUMBNESS/TINGLING. UP TO BATHROOM IND, TURNING SELF IN BED. ON ROOM AIR, LUNGS SOUNDS CLEAR. DENIES SOB/COUGH. NO TELE. SBP 150'S. HR 70-80'S. DENIES CHEST PAIN/PRESSURE/PALPITATIONS. NO EDEMA. IV SALINE LOCKED. SC LOVENOX GIVEN THIS AM PER EMAR. BOWEL TONES PRESENT. INTERMIT ABDOMINAL PAIN/NAUSEA. ABLE TO EAT A SMALL AMOUNT OF EGGS AND MILK THIS AM. NO BOWEL MOVEMENT YET. ORDERS FOR SUPPOSITORY. CIWA SCORE 0. DR. JOSEPH AND DR. MARTINEZ BY THIS AM. IV FOLIC ACID AND THIAMINE INFUSED THIS AM. CALL LIGHT IN REACH. PATIENT DENIES NEEDS.
--- NOTE | 2024-09-08 13:05 | NUR ---
PATIENT HAD BROWN/FORMED BOWEL MOVEMENT THIS AFTERNOON.
[2024-09-08 15:13] VITALS: BP 101/64
[2024-09-08] MEDS ORDERED: MIRALAX17 GM PO (16:14)
--- NOTE | 2024-09-08 18:20 | NUR ---
DISCHARGE: NO ACUTE CHANGES, SEE PREVIOUS NOTE. PATIENT DISCHARGE FROM HOSPITAL AT 1700. CARE COORDINATION SET UP RIDE. PATIENT WENT HOME WITH DISCHARGE PACKET INCLUDING OXYCODONE SCRIPT, SEE COPY IN PAPER CHART. THIS RN EDUCATED ON F/U WITH PCP AND HOME MEDICATIONS AND SIGNS AND SYMPTOMS OF WHEN TO RETURN. IV REMOVED WNL.
== END 2024-09-08 17:07 | disposition home or self-care (01) | DRG 439 ==
LOC: ER 15:30 → MEDS 15:31
PROVIDERS: Registered Nurse; Student in an Organized Health Care Education/Training Program; ADMIT Internal Medicine
DX: K85.10 Biliary acute pancreatitis without necrosis or infection (principal); K76.6 Portal hypertension; K86.1 Other chronic pancreatitis; K74.60 Unspecified cirrhosis of liver; F11.90 Opioid use, unspecified, uncomplicated; F10.90 Alcohol use, unspecified, uncomplicated; Z98.890 Other specified postprocedural states; F17.210 Nicotine dependence, cigarettes, uncomplicated; Z88.8 Allergy status to other drugs, medicaments and biological substances; Z91.030 Bee allergy status; Z91.038 Other insect allergy status; Z91.010 Allergy to peanuts; Z79.899 Other long term (current) drug therapy
CPT/HCPCS: 36415; 70450; 71045; 71250; 72125; 74176; 74177; 76705; 80048; 80053; 82140; 82607; 82746; 83605; 83690; 84478; 84484; 85025; 85610; 93005; 93010; 96361; 96365; 96367; 96374-59; 96375; 96376; 99285-25; A9270; G0378; J0780; J1170; J1650; J2405; J3010; J3411; J7030; J7120; Q9967

== ENCOUNTER 2024-11-06 18:18 | Inpatient (IN) | payer OTHER ==
[~2024-11-06] VITALS: Ht 185.4 cm; Wt 66.8 kg
[~2024-11-06 18:18] MED LIST changes: +Colace100 MG PO; +MIRALAX17 GM PO; +NITR.4SL SL; +OXYC5 PO; +TIZA4 PO
[2024-11-06 19:19] LABS: BASOPHILS ABSOLUTE AUTO 0.07 K/mm3 (0.00-0.23); BASOPHILS PERCENT AUTO 1 % (0-2); EOSINOPHILS ABSOLUTE AUTO 0.07 K/mm3 (0.00-0.68); EOSINOPHILS PERCENT AUTO 1 % (0-6); Hematocrit 34.7 % (37.0-53.0); Hemoglobin 11.9 g/dL (13.5-17.5); IMMATURE GRAN ABSOLUTE AUTO 0.02 K/mm3 (0.00-0.10); IMMATURE GRAN PERCENT AUTO 0 % (0-1); LYMPHOCYTES ABSOLUTE AUTO 1.32 K/mm3 (0.84-5.20); LYMPHOCYTES PERCENT AUTO 22 % (21-46); MONOCYTES ABSOLUTE AUTO 0.61 K/mm3 (0.16-1.47); MONOCYTES PERCENT AUTO 10 % (4-13); Mean Corpuscular HGB 28.5 pg (26.0-34.0); Mean Corpuscular HGB Conc 34.3 g/dL (31.5-36.5); Mean Corpuscular Volume 83 fL (80-100); Mean Platelet Volume 9.3 fL (9.1-12.4); NEUTROPHILS ABSOLUTE AUTO 4.06 K/mm3 (1.96-9.15); NEUTROPHILS PERCENT AUTO 66 % (41-73); Platelet Count 121 K/mm3 (150-400); RDW Coefficient Variation 17.9 % (11.7-14.2); RDW Standard Deviation 53.2 fL (35.1-46.3); Red Blood Cell Count 4.17 M/mm3 (4.30-5.90); White Blood Cell Count 6.15 K/mm3 (4.00-11.30)
[2024-11-06 19:34] LABS: Albumin, Blood 3.4 g/dL (3.4-5.0); Albumin/Globulin Ratio 0.7 (0.8-1.8); Bilirubin, Total 3.4 mg/dL (0.1-1.0); Bun/Creatinine Ratio 18.8 (12.0-20.0); Calcium, Blood 9.8 mg/dL (8.5-10.1); Creatinine, Blood 0.85 mg/dL (0.60-1.20); Globulin, Blood 4.7 g/dL (2.2-4.0); Potassium, Blood 3.9 mmol/L (3.5-5.5); Total Protein, Blood 8.1 g/dL (6.4-8.2)
[2024-11-06] MEDS ORDERED: HYDROmorphone HCl/Pf 1MG SYR IV ONE ×2 (19:35→21:30)
[2024-11-06] MEDS ORDERED: Ondansetron HCl 2 MG / ML 2ML Vial IV ONE (19:35)
[2024-11-06] MEDS ORDERED: Lactated Ringer's 1,000 ML IV ONE (20:25)
[2024-11-06] MEDS ORDERED: Droperidol 5 mg/2 ml Vial IV ONE (20:25)
[2024-11-06] MEDS ORDERED: Ketamine HCl 100 MG / ML 5ML Vial IV ONE (20:50)
[2024-11-06] MEDS ORDERED: FLU VACC TS2024-25(6MOS UP)/PF 45 MCG/0.5 ML SYRINGE IM ONE (22:30)
[2024-11-06] MEDS ORDERED: FentaNYL Citrate 50 MCG/ML 2 ML Injection IV PRN (22:30)
[2024-11-06] MEDS ORDERED: NS 1,000 ML IV ONE (22:30)
[2024-11-06] MEDS ORDERED: HYDROmorphone HCl/Pf 1MG SYR IV PRN (22:30)
[2024-11-06] MEDS ORDERED: Ondansetron HCl 2 MG / ML 2ML Vial IV PRN (22:35)
[2024-11-06] MEDS ORDERED: Enoxaparin 40 MG/0.4 ML SYR SC SCH (23:00)
--- NOTE | 2024-11-07 00:05 | NUR ---
PT HERE VIA WHEELCHAIR FROM ER. PT AMBULATORY TO MEDICAL FLOOR BED. PT TOMGLORIA, REPORTS "DUE TO PAIN." WILL MEDICATE PER ORDERS. PT USING URINAL - DARK TEA COLORED URINE OUT. PT REPORTS A 50 LB WEIGHT LOSS IN THE LAST MONTH - THE LAST TIME HE WEIGHED WAS AT A DOCTOR'S OFFICE "ABOUT 1 MONTH AGO." PT REPORTS HE "HASN'T BEEN ABLE TO KEEP ANYTHING DOWN FOR 2 WEEKS." PT ALSO REPORTS 'NO BM FOR 2 WEEKS." PT REPORTS HE HAS CHRONIC PANCREATITIS - SEE ADMISSION HISTORY. HE REPORTS THE LAST 6 MONTHS HIS PANCREATITIS HAS WORSENED. PT IS NPO. PT DENIES ANY NAUSEA AT THIS TIME. CALL LIGHT WITHIN REACH. BED IN LOW POSITION - BED ALARM ON FOR SAFETY. BELONGINGS WITHIN REACH.
[2024-11-07 00:23] VITALS: BP 160/84
--- NOTE | 2024-11-07 01:15 | NUR ---
NEW MEDICATION ORDERS OBTAINED - SEE EMAR. I SPOKE TO DR. CEE - UPDATED HIM ON PT'S WEIGHT LOSS, LACK OF BM FOR 2 WEEKS - ORDER OBTAINED. REVIEWED WITH PT SUPPOSITORY AVAILABLE - HE DECLINED THIS "UNTIL THE AM." PEPCID ORDER OBTAINED - PT REQUESTED PEPCID.
[2024-11-07] MEDS ORDERED: Bisacodyl 10 MG Supp PR PRN (01:20)
[2024-11-07] MEDS ORDERED: HYDROmorphone HCl/Pf 1MG SYR IV PRN (01:25)
[2024-11-07] MEDS ORDERED: ChlordiazePOXIDE 25 MG Cap PO PRN (04:05)
[2024-11-07] MEDS ORDERED: LORazepam 2 MG/ML 1ML Injection IV PRN (04:05)
--- NOTE | 2024-11-07 04:27 | NUR ---
PT REPORTS HE HASN'D DRANK ETOH IN APPX 2 YEARS.
[2024-11-07 04:51] VITALS: BP 159/96
[2024-11-07] MEDS ORDERED: Famotidine 20 MG Tab PO SCH ×2 (04:58→09:00)
[2024-11-07 05:12] LABS: BASOPHILS ABSOLUTE AUTO 0.05 K/mm3 (0.00-0.23); BASOPHILS PERCENT AUTO 1 % (0-2); EOSINOPHILS ABSOLUTE AUTO 0.12 K/mm3 (0.00-0.68); EOSINOPHILS PERCENT AUTO 2 % (0-6); Hematocrit 31.3 % (37.0-53.0); Hemoglobin 10.6 g/dL (13.5-17.5); IMMATURE GRAN ABSOLUTE AUTO 0.03 K/mm3 (0.00-0.10); IMMATURE GRAN PERCENT AUTO 1 % (0-1); LYMPHOCYTES ABSOLUTE AUTO 1.98 K/mm3 (0.84-5.20); LYMPHOCYTES PERCENT AUTO 35 % (21-46); MONOCYTES ABSOLUTE AUTO 0.64 K/mm3 (0.16-1.47); MONOCYTES PERCENT AUTO 11 % (4-13); Mean Corpuscular HGB 28.4 pg (26.0-34.0); Mean Corpuscular HGB Conc 33.9 g/dL (31.5-36.5); Mean Corpuscular Volume 84 fL (80-100); Mean Platelet Volume 9.5 fL (9.1-12.4); NEUTROPHILS ABSOLUTE AUTO 2.86 K/mm3 (1.96-9.15); NEUTROPHILS PERCENT AUTO 50 % (41-73); Platelet Count 107 K/mm3 (150-400); RDW Coefficient Variation 17.5 % (11.7-14.2); RDW Standard Deviation 53.2 fL (35.1-46.3); Red Blood Cell Count 3.73 M/mm3 (4.30-5.90); White Blood Cell Count 5.68 K/mm3 (4.00-11.30)
[2024-11-07 05:25] LABS: International Normalized Ratio 1.33; Prothrombin Time Results 13.9 Sec (9.7-11.5)
[2024-11-07 05:46] LABS: Albumin/Globulin Ratio 0.7 (0.8-1.8); Bilirubin, Total 2.9 mg/dL (0.1-1.0); Bun/Creatinine Ratio 19.1 (12.0-20.0); Calcium, Blood 8.7 mg/dL (8.5-10.1); Creatinine, Blood 0.73 mg/dL (0.60-1.20); Globulin, Blood 4.2 g/dL (2.2-4.0); Potassium, Blood 3.9 mmol/L (3.5-5.5); Total Protein, Blood 7.2 g/dL (6.4-8.2)
--- NOTE | 2024-11-07 05:57 | NUR ---
SHIFT SUMMARY - PT REPORTED HEARTBURN THIS AM - MEDICATED WITH PRILOSEC. PT CONTINUES TO REPORT ABDOMINAL PAIN - HOWEVER PT DECLINES FENTANYL, AND REPORTS HE WILL WAIT FOR DILAUDED 2MG AT 0830 THIS AM. OTHERWISE NO ACUTE CHANGES SINCE ADMIT TONIGHT. PT CONTINUES NPO. IV FLUIDS INFUSING WITHOUT DIFFICULTY TO LEFT AC IV SITE. CALL LIGHT WITHIN REACH. URINAL AT BEDSIDE - PT INSTRUCTED TO CALL SO WE CAN SEND A UA. NO OTHER REQUESTS AT THIS TIME.
[2024-11-07 07:16] VITALS: BP 166/93
[2024-11-07] MEDS ORDERED: Docusate Sodium 100 MG Cap PO SCH (09:00)
[2024-11-07] MEDS ORDERED: Pantoprazole Sodium 40 MG Injection IV SCH (10:00)
[2024-11-07] MEDS ORDERED: Mag Hydrox/AL Hydrox/Simeth 30 ML UDC PO PRN (10:05)
[2024-11-07] MEDS ORDERED: Calcium Carbonate 500 MG Tab Chew PO PRN (10:05)
[2024-11-07] MEDS ORDERED: NS 1,000 ML IV SCH (10:20)
[2024-11-07] MEDS ORDERED: Mag Hydrox/Al Hydrox/Simeth 18 ML,Lidocaine 2% Viscous Soln 9 ML,Atropine/Scopalam/Hyos... PO ONE (10:30)
[2024-11-07 12:31] LABS: Percent Saturation 17.1 % (20.0-50.0)
--- NOTE | 2024-11-07 15:00 | NUR ---
SHIFT SUMMARY PT RESTING QUIETLY AT START OF SHIFT. HAS MOSTLY SLEPT ALL DAY. CALLS FOR PAIN MEDICATION NEEDED. MINIMAL URINE OUTPUT TO PRESENT. IVF'S CONTINUED. DR LEW IN TO SEE PT A COUPLE OF TIMES TO DISCUSS PLAN OF CARE AND CHANGE MEDICATIONS; SEE CHART. PT REMAINS NPO AT THIS TIME. NRS PER TELE MX. A&O, ABLE TO MAKE NEEDS KNOWN. CALL LT IN REACH.
[2024-11-07 15:06] VITALS: BP 138/76
[2024-11-07 16:16] LABS: Source, Urine Clean Catch
[2024-11-07 16:25] LABS: Blood, Urine 5+ (Neg); Color, Urine Amber (P-Yellow); Glucose Qualitative, Urine Neg (Neg); Ketones, Urine 1+ (Neg); Leukocyte Esterase, Urine 1+ (Neg); Nitrite, Urine Neg (Neg); Protein, Urine Neg (Neg); Urobilinogen, Urine 3+ (Normal)
[2024-11-07 16:47] LABS: Appearance, Urine Hazy (Clear); Bilirubin, Urine 1+ (Neg)
[2024-11-07 16:49] LABS: Amorphous Light (0-Heavy); Bacteria Many /hpf; Calcium Oxalate Crystals Few /hpf; Mucus Light (0-Heavy); Red Blood Cells, Urine TNTC /hpf (0-2); Squamous Epithelial Cells Rare /hpf (Few)
[2024-11-07 20:34] VITALS: BP 154/96
[2024-11-08 05:13] VITALS: BP 152/87
--- NOTE | 2024-11-08 07:17 | NUR ---
CLINICAL PSYCHOLOGY PROFESSOR SUMMARY PT SAYS HE HASNT HAD ALCOHOL IN 2 YEARS BUT ON A VISIT IN OF THIS YEAR HE WAS POSITIVE FOR ETOH. AT 2148 PT WAS TREMULOUS AND VERY ANXIOUS. HE RECEIVED A ONE TIME DOSE OF IV ATIVAN THIS SHIFT AND HIS TREMORS AND ANXIETY WENT AWAY WITHIN 20 MINUTES OF HIS DOSE.
[2024-11-08 07:47] VITALS: BP 155/91
[2024-11-08] MEDS ORDERED: CefTRIAXone Sodium 1,000 MG in NS 100 ML IV SCH (09:00)
[2024-11-08] MEDS ORDERED: NS 1,000 ML IV SCH (12:00)
[2024-11-08 15:54] VITALS: BP 141/89
--- NOTE | 2024-11-08 17:30 | NUR ---
SHIFT SUMMARY PT SLEEPING AT START OF SHIFT. MEDICATED PRIOR TO SHIFT REPORT. MEDS AND ABX GIVEN IV PER EMAR. PT SEEMS TO HAVE IMPROVED TODAY. PT HAS NOT C/O PAIN OR NAUSEA TO PRESENT THIS SHIFT. DR LEW IN TO SEE PT AND DISCUSS PLAN OF CARE. DIET ADVANCED TO CL. PT TOLERATING SM AMTS. PT APPEARING TO HAVE SOME ETOH W/D'S, BUT IN DENIAL. MEDICATED WITH ATIVAN ON NOC SHIFT. DECLINED PO LIBRIUM. PT SEEMED A LITTLE BETTER TODAY THAN YESTERDAY. MEDICATIONS ADJUSTED YESTERDAY AND SEEM TO BE HELPING. PT REPORTING IMPROVEMENT. NUTRITION CONSULT ORDERED FOR AM; DIETARY NOT HERE TODAY. RESTING QUIETLY AT THIS TIME. CALL LT IN REACH.
[2024-11-08 19:48] VITALS: BP 146/94
[2024-11-09 04:46] VITALS: BP 109/68
[2024-11-09 07:51] VITALS: BP 126/77
--- NOTE | 2024-11-09 09:00 | NUR ---
pt laying in bed with his head covered, wakes easily and is cooperative with care, follows commands well, is pretty sleepy this am, lungs are clear on r/a, no cough noted, hrr, no edema noted, ppp+2, cap refill <3 sec, vs stable, afebrile, piv to rfa, site is clear and patent, infusing ns at 125mls/hr, btx4, abd flat soft nontender, voids via urinal, urine is dk ava urine, skin c/w/d, sabrina barbosa, call light in reach.
[2024-11-09 09:05] LABS: Magnesium, Blood 1.8 mg/dL (1.6-2.4); Phosphorus, Blood 2.7 mg/dL (2.5-4.9); Triglycerides 49 mg/dL (30-160)
[2024-11-09] MEDS ORDERED: TPN Consult Notification XX ONE ×2 (10:00→11:25)
[2024-11-09 15:51] VITALS: BP 146/87
--- NOTE | 2024-11-09 16:38 | NUR ---
SHIFT SUMMARY 3805 ASSUMED CARE OF PT. RESTING QUIETLY UNTIL LUNCH. ABLE TO TOLERATE SOME PO. UP TO EOB TO USE URINAL. PT MOSTLY SLEEPS. FLAT AFFECT. MEDICATED FOR C/O PAIN NEEDED. PER REPORT, PT TO START PPN THIS EVENING TO ASSIST WITH NUTRITIONAL SUPPORT. A&O, ABLE TO MAKE NEEDS KNOWN. CALL LT IN REACH.
[2024-11-09] MEDS ORDERED: Parenteral Electolytes 40 ML,Potassium Phosphate Dibasic 30 MM,Multivitamins 10 ML,Thia... IV SCH (17:00)
[2024-11-09] MEDS ORDERED: Parenteral Electolytes 40 ML,Potassium Phosphate Dibasic 30 MM,Multivitamins 10 ML,ZINC... IV SCH (17:00)
[2024-11-09 19:27] VITALS: BP 147/96
[2024-11-10 05:47] LABS: Bun/Creatinine Ratio 9.3 (12.0-20.0); Calcium, Blood 9.1 mg/dL (8.5-10.1); Creatinine, Blood 0.76 mg/dL (0.60-1.20); Magnesium, Blood 1.6 mg/dL (1.6-2.4); Phosphorus, Blood 3.5 mg/dL (2.5-4.9); Potassium, Blood 3.9 mmol/L (3.5-5.5)
[2024-11-10 06:06] VITALS: BP 124/81
[2024-11-10 07:23] VITALS: BP 123/80
[2024-11-10] MEDS ORDERED: Protein Supplement 30 ML UD PO SCH (09:00)
[2024-11-10] MEDS ORDERED: Polyethylene Glycol 3350 17 gm PO SCH (10:00)
[2024-11-10] MEDS ORDERED: Magnesium Hydroxide Conc 10 ML UDC PO SCH (10:00)
[2024-11-10] MEDS ORDERED: OxyCODONE HCL 5 MG TAB PO PRN (10:05)
--- NOTE | 2024-11-10 14:55 | NUR ---
CONTACTED DR LEW REGARDING PATIENT PAIN LEVEL OF 9/10 AND REPORTS PAIN IN RIGHT/LEFT UPPER QUADS. PATIENT STATES HE DOES NOT FEEL PAIN MEDICATION IS WORKING. DR LEW TO ORDER CT SCAN OF ABDOMEN.
[2024-11-10] MEDS ORDERED: FentaNYL Citrate 50 MCG/ML 2 ML Injection IV PRN (15:00)
[2024-11-10 15:32] VITALS: BP 148/90
--- NOTE | 2024-11-10 18:26 | NUR ---
PATIENT IS A/O X 4. PATIENT HAS COMPLAINED OF PAIN RATED 9/10 IN RUQ/LUQ. TALKED TO DR REESE WHO ORDERED CT SCAN OF ABDOMEN TO BE COMPLETED. PATIENT WENT TO CT SCAN PENDING RESULTS. PATIENT DOES CALL FOR ASSISTANCE WHEN NEEDED WAS ABLE TO TOLERATE SMALL AMOUNTS OF FOOD FOR LUNCH AND DINNER. PATIENT DIENED ANY OTHER NEEDS AT THIS TIME.
[2024-11-10] MEDS ORDERED: Lactulose 20 GM/30 ML UDC PO ONE (19:00)
[2024-11-10 20:20] VITALS: BP 146/84
[2024-11-10] MEDS ORDERED: HYDROmorphone HCl 2 MG Tab PO PRN (20:35)
[2024-11-11 02:09] VITALS: BP 141/85
[2024-11-11 05:46] LABS: Magnesium, Blood 1.7 mg/dL (1.6-2.4); Phosphorus, Blood 3.6 mg/dL (2.5-4.9)
--- NOTE | 2024-11-11 07:35 | NUR ---
SHOTBLAST EQUIPMENT OPERATOR SUMMARY GAVE MILK OF MAG AND LACTULOSE FOR REPORTED CONSTIPATION. PT REFUSED HAVING A SUPPOSITORY FOR ME BUT AGREES TO GET UP AND WALK WITH STAFF TODAY.
[2024-11-11 07:53] LABS: Albumin, Blood 2.8 g/dL (3.4-5.0); Albumin/Globulin Ratio 0.7 (0.8-1.8); Bilirubin, Direct 0.9 mg/dL (0.0-0.3); Bilirubin, Total 1.9 mg/dL (0.1-1.0); Total Protein, Blood 6.8 g/dL (6.4-8.2)
[2024-11-11 08:03] VITALS: BP 144/90
[2024-11-11] MEDS ORDERED: TPN Consult Notification XX ONE (10:20)
--- NOTE | 2024-11-11 15:05 | NUR ---
CONTACTED DR LEW REGARDING NO BOWEL MOMEMENT. CT SHOWED BOWEL IMPACTION AND DUCLOX ORDERED BY PROVIDER.
--- NOTE | 2024-11-11 15:24 | NUR ---
TRIED TO CONTACT DR LEW REGARDING DENTAL HYGEIEST FIND OF UPPER DENTAL ABCESS AND NOTED THRUSH IN MOUTH. PENDING RETURN CALL
[2024-11-11 15:38] VITALS: BP 142/79
[2024-11-11] MEDS ORDERED: Fluconazole 100 MG Tab PO ONE (16:00)
[2024-11-11] MEDS ORDERED: Bisacodyl 5 MG TabEC PO ONE (16:00)
[2024-11-11] MEDS ORDERED: Parenteral Electolytes 40 ML,Potassium Phosphate Dibasic 30 MM,Multivitamins 10 ML,Thia... IV SCH (17:00)
--- NOTE | 2024-11-11 18:31 | NUR ---
PATEINT A/O X 4 PATIENT HAS BEEN SLEEPING MOST OF THE SHIFT. PATIENT CONTINUE TO RATE PAIN 9/10 IN UPPER ABD AREA AND PAIN MEDICATION HAS BEEN GIVEN WITH NO ALLERVIATION OF PAIN. PATIENT HAS NOT HAD A BOWEL MOVEMENT AND CONTIUES TO GET BOWEL PREP MEDICATION. PATIENT WAS GIVEN DUCOLOX ORALLY TO ASSIT SINCE CT SHOWED ABD FULL OF STOOL. PATIENT PPN HAS BEEN DECREASED TO 63/HR TO HELP STIMULATE PATIENT APPETITES PATIENT DOES NOT WANT TO EAT AT THIS TIME. PATIENT HAS SHOWER TODAY AND DOES GET UP IN CHAIR FOR MEALS. PATIENT ENCOURAGED TO GET UP TO HELP BOWELS MOVE. PATIENT ADVISED TO CALL FOR ANY ASSITANCE. PATIENT VERBALZIED UNDERSTANDING.
[2024-11-11 19:29] VITALS: BP 150/88
[2024-11-11] MEDS ORDERED: Amoxicillin/Clavulanate K 875 MG Tab PO SCH (21:00)
[2024-11-12 02:50] VITALS: BP 148/91
--- NOTE | 2024-11-12 05:25 | NUR ---
SHIFT SUMMARY PT A&Ox4. MEDICATED FOR PAIN PER EMAR. TPN INFUSING @ 63ml/hr. BOWEL CARE GIVEN AND PT REPORTED HAVING VERY SMALL BM TONIGHT. DECLINED DULCOLAX SUPOSITORY AT HS. NO EVENTS ON TELE. VSS. NO ACUTE CHANGES. BED ALARM. BED IN LOWEST POSITON AND CALL LIGHT IN REACH.
[2024-11-12 07:54] LABS: Phosphorus, Blood 3.2 mg/dL (2.5-4.9)
[2024-11-12 07:59] VITALS: BP 128/76
[2024-11-12] MEDS ORDERED: Lactulose 20 GM/30 ML UDC PO STA (08:17)
[2024-11-12] MEDS ORDERED: OxyCODONE HCL 5 MG TAB PO PRN (08:55)
[2024-11-12] MEDS ORDERED: Fluconazole 100 MG Tab PO SCH (09:00)
[2024-11-12] MEDS ORDERED: Peg/Electrolytes 4,000 ML BTL PO ONE (09:00)
[2024-11-12 16:06] VITALS: BP 140/84
--- NOTE | 2024-11-12 17:37 | NUR ---
PATIENT A/O X 4. PATIENT AFFECT IS FLAT AND STATES HE IS JUST IN A PAIN. PATIENT STARTED ON ORAL BOWEL PREP GOLYTE WHICH PATIENT HAS BEEN TRYING TO DRINK ALL DAY. PATIENT ON PPN/63/HR. PATIENT HAS DENIED ALL FOOD TODAY. PATIENT HAS HAD NO BOWEL MOVEMENT AT THIS TIME. PATIENT CONTINUES TO DRINK BOWEL PREP. PATIENT ADVISED TO CALL FOR ANY ASSITANCE.
[2024-11-12 21:06] VITALS: BP 150/82
[2024-11-13 02:30] VITALS: BP 147/88
[2024-11-13 05:26] LABS: Bun/Creatinine Ratio 24.7 (12.0-20.0); Calcium, Blood 9.1 mg/dL (8.5-10.1); Creatinine, Blood 0.65 mg/dL (0.60-1.20); Potassium, Blood 4.1 mmol/L (3.5-5.5)
--- NOTE | 2024-11-13 06:13 | NUR ---
SHIFT SUMMARY A&0X4. PT ADMITTED DUE TO ACUTE ON CHRONIC PANCREATITIS. PT REPORTS ABD PAIN. PAIN MANAGED PER EMAR. PT RECEIVED SUPPOSITORY FOR CONSTIPATION, PT REPORTS HAVING HAD A LARGE BM POST SUPPOSITIORY. PT ON ROOM AIR. PT ON TELE. PT REPORTS PAIN IN ABD, PAIN MANAGED PER EMAR. BED IN LOWEST POSITION, CALLS APPROPRIATE. PT IS 1 PERSON SBA DUE TO LINES/CORDS. PT HAS PPN RUNNING AT 63ML/HR. CALL LIGHT IN REACH.
[2024-11-13 07:30] VITALS: BP 149/85
[2024-11-13] MEDS ORDERED: Ketorolac Tromethamine 30mg Vial IV PRN (10:40)
[2024-11-13 15:22] VITALS: BP 151/95
--- NOTE | 2024-11-13 18:36 | NUR ---
PT IS LABILE, IRRITABLE AND AGGITATED THROUGH OUT SHIFT. THIS EVENING, RN RESPONDED TO AN IV ALARM AND THE PT ASKED HER TO "GET OUT OF THE ROOM" AND "THIS PLACE IS A NIGHT MARE, LEAVE ME ALONE." PT STATED HE DIDN'T WANT THE PPN CONNECTED TO HIS IV ANYMORE, HE DIDN'T WANT TELEMETRY ON. HE REFUSED CARE. PT IS ROOM AIR, AND INDEPENDENT IN ROOM. URINATING THIS MORNING, NO BOWEL MOVEMENT SINCE YESTERDAY EVENING SHIFT. RFA IV AND LEFT HAND IV. DIET FULL LIQUID. PT IS VERY PAINFUL, AND STATES THAT OXYCODONE IS NOT SUFFICIENT. THIS RN CALLED DR. CARL, WHO ORDERED TORADOL. PT DIDN'T WANT TORADOL BECAUSE HE THINKS IT WILL DAMAGE HIS LIVER. PT BECAME UPSET BECAUSE THIS RN DIDN'T CALL HIS DOCTOR IN [place] TO DISCUSS. PT PULLED BLANKET OVER HIS HEAD AND ASKED THIS RN TO GET OUT. RN WILL CONTINUE TO MONITOR.
[2024-11-13 19:42] VITALS: BP 147/99
[2024-11-14 03:55] VITALS: BP 151/87
--- NOTE | 2024-11-14 06:21 | NUR ---
SHIFT SUMMARY PT A&OX4. PT ADMITTED DUE TO ACUTE ON CHRONIC PANCREATITIS. PT REPORTS ABD PAIN. PT REPORTS NO NAUSEA. PT APPETITE IS POOR. PT HAD REFUSED PPN, PLAN PER DAY SHIFT WAS TO D/C PPN TODAY. PAIN MANAGED PER EMAR, PT REFUSED TORADOL. PT REQUESTED HEATING PAD, KPAD IN PLACE. PT ON ROOM AIR, PT D/C FROM TELE PER ORDER. BED MANAGED PER EMAR. PT IS A 1 PERSON ASSIST. CALL LIGHT IN REACH.
[2024-11-14 07:33] VITALS: BP 150/90
[2024-11-14] MEDS ORDERED: Amylase/Lipase/Protease DR Cap 12,000 PO SCH ×2 (09:00→17:30)
[2024-11-14] MEDS ORDERED: OxyCODONE HCL 5 MG TAB PO PRN (11:00)
[2024-11-14] MEDS ORDERED: TiZANidine HCl 4 MG Tab PO PRN (12:00)
[2024-11-14] MEDS ORDERED: Amylase/Lipase/Protease DR Cap 12,000 PO PRN (15:30)
--- NOTE | 2024-11-14 15:45 | NUR ---
SHIFT SUMMARY PATIENT REFUSING ALL MEDICATIONS THIS AM INCLUDING PAIN MEDS AND ABX, DR CARL MADE AWARE. PATIENT AGREEABLE TO CONTINUE TREATMENT PRESCRIBED WHILE SPEAKING WITH DOC AND COAT OPERATOR, HOWEVER CONTINUES TO REFUSE WITH PRIMARY RN. ABLE TO TOLERATE FOOD THIS SHIFT, PPN DISCONTINUED PER ORDER. ABLE TO MAKE NEEDS KNOWN. CALL LIGHT IN REACH, CARES ONGOING.
[2024-11-14 16:24] VITALS: BP 150/83
[2024-11-14 21:14] VITALS: BP 138/85
[2024-11-15 03:21] VITALS: BP 115/72
[2024-11-15 05:01] LABS: BASOPHILS ABSOLUTE AUTO 0.08 K/mm3 (0.00-0.23); BASOPHILS PERCENT AUTO 2 % (0-2); EOSINOPHILS ABSOLUTE AUTO 0.22 K/mm3 (0.00-0.68); EOSINOPHILS PERCENT AUTO 5 % (0-6); Hematocrit 29.2 % (37.0-53.0); Mean Corpuscular HGB 28.9 pg (26.0-34.0); Mean Corpuscular HGB Conc 34.2 g/dL (31.5-36.5); Mean Corpuscular Volume 84 fL (80-100); Mean Platelet Volume 9.6 fL (9.1-12.4); Platelet Count 95 K/mm3 (150-400); RDW Coefficient Variation 17.2 % (11.7-14.2); RDW Standard Deviation 53.4 fL (35.1-46.3); Red Blood Cell Count 3.46 M/mm3 (4.30-5.90)
[2024-11-15 05:07] LABS: IMMATURE GRAN ABSOLUTE AUTO 0.02 K/mm3 (0.00-0.10); IMMATURE GRAN PERCENT AUTO 0 % (0-1); LYMPHOCYTES ABSOLUTE AUTO 1.57 K/mm3 (0.84-5.20); LYMPHOCYTES PERCENT AUTO 34 % (21-46); MONOCYTES ABSOLUTE AUTO 0.57 K/mm3 (0.16-1.47); MONOCYTES PERCENT AUTO 12 % (4-13); NEUTROPHILS ABSOLUTE AUTO 2.14 K/mm3 (1.96-9.15); NEUTROPHILS PERCENT AUTO 47 % (41-73)
[2024-11-15 05:49] LABS: Albumin, Blood 2.8 g/dL (3.4-5.0); Albumin/Globulin Ratio 0.7 (0.8-1.8); Bun/Creatinine Ratio 21.9 (12.0-20.0); Calcium, Blood 8.6 mg/dL (8.5-10.1); Creatinine, Blood 0.78 mg/dL (0.60-1.20); Globulin, Blood 4.2 g/dL (2.2-4.0); Potassium, Blood 3.9 mmol/L (3.5-5.5)
--- NOTE | 2024-11-15 06:13 | NUR ---
WOOD FORM BUILDER SUMMARY PT A/OX4. NO ACUTE CHANGES. PT ABLE TO MAKE NEEDS KNOWN. PT HAS BEEN MOSTLY AGREEABLE DURING THE SHIFT. PT REQUESTED SMALL SNACK AT BEDTIME WHICH THE PT TOLERATED WITHOUT NAUSEA. HOWEVER PT CONT TO REPORT PAIN IN ABD. PT GIVEN MEDS PRN 2X THIS SHIFT. WHEN PT ASKED THIS AM FOR ADDITIONAL MEDS; EDUCATED PT OF THE Q4 LIMIT AND OF NEXT AVAILABLE PAIN MED; PT WAS ARGUMENTATIVE AND FELT HE SHOULD HAVE THE MEDICATIONS SOONER SINCE HE WAITED MORE THAN 4 HOURS BETWEEN THE PREVIOUS 2 DOSES. REAFFIRMED NEXT AVAILABLE DOSE. PT TOOK ALL SCEDULED MEDS AT BEDTIME/2100.
[2024-11-15 07:18] VITALS: BP 114/68
[2024-11-15 15:06] VITALS: BP 116/75
--- NOTE | 2024-11-15 17:25 | NUR ---
SHIFT SUMMARY PATIENT AMBULATING IN ROOM THIS SHIFT, CT PERFORMED. C/O INTENSE ABD PAIN, MEDICATED PER JAN. STATED TO HAVING BM THIS SHIFT. REFUSING TOREDOL. ABLE TO MAKE NEEDS KNOWN. CALL LIGHT IN REACH, CARES ONGOING
[2024-11-15 19:21] VITALS: BP 109/72
[2024-11-16 01:46] VITALS: BP 118/78
--- NOTE | 2024-11-16 03:35 | NUR ---
KEYCASE ASSEMBLER SUMMARY: PT A&O X4, ABLE TO MAKE NEEDS KNOWN. AT APPROX 2215 PT C/O 9/10 ABD PAIN AND NEW ONSET CP / CHEST PRESSURE / SOB. PT DESCRIBES PAIN SHOOTING THROUGH STERNUM TO MIDDLE OF BACK. DENIES CARDIAC HX. RESPIRATIONS APPEAR EVEN AND UNLABORED, WNL. VSS. CHARGE TIFFANIE Ramires RN NOTIFIED. BESS Brewer RN INTO ROOM TO PERFORM EKG. PT REFUSING EKG AND STATING THAT HE DID NOT REPORT NEW CP TO THIS NURSE. PT REPORTS THAT HE IS HAVING ABD PAIN. PT MEDICATED X2 WITH OXYCODONE 10MG FOR ABD PAIN PER EMAR ORDER. FIRST DOSE INEFFECTIVE. PT ASSISTED WITH TAKING A HOT SHOWER A PAIN MANAGEMENT INTERVENTION. PT REPORTS MINIMAL EFFECT. PT FIXATE ON PAIN MEDS. NO FURHTER C/O CHEST PAIN T/O SHIFT. HE CONTINUES TO DEFLECT EDUCATION AND MAKE DESPARAGING COMMENTS. PT CONTINUES TO BE INDEPENDENT WITH CARES IN ROOM. CALL LIGHT IN REACH.
[2024-11-16 07:26] VITALS: BP 138/69
[2024-11-16 15:24] VITALS: BP 146/84
[2024-11-16 19:11] VITALS: BP 134/85
--- NOTE | 2024-11-16 19:23 | NUR ---
SHIFT SUMMARY PT A&OX4. PT ADMITTED DUE TO ACUTE ON CHRONIC PANCREATITIS. PT IS INDEPENDENT IN ROOM. PT REPORTS PAIN, PAIN MANAGED PER EMAR. NO ACUTE CHANGES DURING SHIFT. PT REPORTS STILL NOT TOLERATING FOOD AND REFUSED HIS LUNCH TRAY. PT ON ROOM AIR. BED IN LOWEST POSIBLE POSITION. CALL LIGHT IN REACH.
[2024-11-16] MEDS ORDERED: TiZANidine HCl 4 MG Tab PO SCH ×2 (21:00)
[2024-11-17] MEDS ORDERED: Pantoprazole Sodium 20 MG Tab PO SCH (06:00)
--- NOTE | 2024-11-17 06:17 | NUR ---
SHIFT SUMMARY: Pt is admitted for acute on chronic pancreatitis and is a full code. Is alert and able to make needs known. ADLs have been IND. pain has been managed with PRN medication x2
[2024-11-17 07:36] VITALS: BP 108/72
[2024-11-17 08:13] LABS: BASOPHILS ABSOLUTE AUTO 0.05 K/mm3 (0.00-0.23); BASOPHILS PERCENT AUTO 1 % (0-2); EOSINOPHILS ABSOLUTE AUTO 0.34 K/mm3 (0.00-0.68); EOSINOPHILS PERCENT AUTO 6 % (0-6); Hemoglobin 11.2 g/dL (13.5-17.5); IMMATURE GRAN ABSOLUTE AUTO 0.01 K/mm3 (0.00-0.10); IMMATURE GRAN PERCENT AUTO 0 % (0-1); LYMPHOCYTES ABSOLUTE AUTO 1.78 K/mm3 (0.84-5.20); LYMPHOCYTES PERCENT AUTO 33 % (21-46); MONOCYTES ABSOLUTE AUTO 0.64 K/mm3 (0.16-1.47); MONOCYTES PERCENT AUTO 12 % (4-13); Mean Corpuscular HGB Conc 32.9 g/dL (31.5-36.5); Mean Corpuscular Volume 88 fL (80-100); Mean Platelet Volume 9.7 fL (9.1-12.4); NEUTROPHILS ABSOLUTE AUTO 2.63 K/mm3 (1.96-9.15); NEUTROPHILS PERCENT AUTO 48 % (41-73); Platelet Count 111 K/mm3 (150-400); RDW Coefficient Variation 16.8 % (11.7-14.2); RDW Standard Deviation 53.9 fL (35.1-46.3); Red Blood Cell Count 3.86 M/mm3 (4.30-5.90); White Blood Cell Count 5.45 K/mm3 (4.00-11.30)
[2024-11-17 08:37] LABS: Albumin/Globulin Ratio 0.7 (0.8-1.8); Bilirubin, Total 2.9 mg/dL (0.1-1.0); Bun/Creatinine Ratio 22.6 (12.0-20.0); Calcium, Blood 9.1 mg/dL (8.5-10.1); Creatinine, Blood 0.93 mg/dL (0.60-1.20); Globulin, Blood 4.3 g/dL (2.2-4.0); Potassium, Blood 4.2 mmol/L (3.5-5.5); Total Protein, Blood 7.3 g/dL (6.4-8.2)
[2024-11-17] MEDS ORDERED: Metoclopramide HCl 5MG / ML 2ML Vial IV PRN (14:50)
--- NOTE | 2024-11-17 17:35 | NUR ---
SHIFT SUMMARY PT A&OX4. PT ADMITED DUE TO ACUTE ON CHRONIC PANCREATITIS. REPORTS ABD PAIN. PAIN MANAGED PER EMAR. PT REPORTS NAUSEA, DR. CARL ORDERED REGLAN. VSS. EMESIS BAG AT BEDSIDE. PLAN FOR PT TO GET AN MRI. MRI FORM COMPLETE. PT INDEPENDENT IN ROOM. PT BED IN LOWEST POSITION. CALL LIGHT IN REACH. NO ACUTE CHANGES NOTED.
[2024-11-17 19:15] VITALS: BP 123/74
[2024-11-18 03:45] VITALS: BP 97/64
[2024-11-18 07:43] VITALS: BP 130/82
--- NOTE | 2024-11-18 08:44 | NUR ---
LEFT MESSAGE FOR DR. CARL REGARDING PT HEART RATE 44. PT IS VERY GROGGY BUT WILL OPEN YES AND RESPONDS TO QUESTIONS APPROPRIATELY BUT IS SLOW TO RESPOND. PT STATES "I'M JUST REALLY TIRED." AWAITING RETURN CALL. WILL CHECK ON PT FREQUENTLY.
--- NOTE | 2024-11-18 09:38 | NUR ---
PT IS REFUSING TO WEAR CONTINUOUS PULSE OXIMETER. EXPLAINED IMPORTANCE AND WHY WE ARE MONITORING HIS HEART RATE AND OXYGEN SATURATIONS. PT CONTINUES TO REFUSE, TAKING SENSOR OFF HIS FINGER.
[2024-11-18 09:50] VITALS: BP 118/76
[2024-11-18 11:27] VITALS: BP 94/68
[2024-11-18 11:40] VITALS: BP 84/59
[2024-11-18] MEDS ORDERED: Lactated Ringer's 1,000 ML IV SCH (12:00)
[2024-11-18] MEDS ORDERED: Lactulose 20 GM/30 ML UDC PO ONE (12:05)
--- NOTE | 2024-11-18 12:41 | NUR ---
NOTE AT 1145 PT HAD BP OF 84/59 WITH HR OF [address] CARL, DR. CARL ORDERED 1 TIME BAG FOR LR TO RUN WITHIN 2 HOURS. PT ASKED ME TO "GET OUT OF HIS ROOM". PT EDUCATED ON IMPORTANCE OF INFUSION. PT REFUSED LR INFUSION.
[2024-11-18] MEDS ORDERED: DOCU100 PO (13:39)
[2024-11-18] MEDS ORDERED: LACT10SY PO (13:40)
[2024-11-18] MEDS ORDERED: PANT20 PO (13:41)
[2024-11-18] MEDS ORDERED: ONDA4ODT MM (13:41)
[2024-11-18] MEDS ORDERED: MIRALAX17 GM PO (13:42)
--- NOTE | 2024-11-18 15:40 | NUR ---
DISCHARGE NOTE PT A&OX4. PT WAS ADMITTED DUE TO ACUTE ON CHRONIC PANCREATITS. PT REPORTS SOME NAUSEA, MEDICATED PRE EMAR. PT REFUSED TO SIGN PAPERWORK AT DISCHARGE BUT GAVE VERBAL CONSENT. GAVE PT DISCHARGE INSTRUCTIONS AND MEDS. PT WENT WITH HARD SCRIPT. PT ESCORTED BY PHYSICAL THERAPY ASSISTANT BY WHEELCHAIR OUT TO [facility], MEDS FAXED TO PHARMACY.
== END 2024-11-18 15:38 | disposition home or self-care (01) | DRG 439 ==
LOC: ER 18:18 → MEDS 22:49 → ERHOLD 22:49 → MEDS 11-07 00:08
PROVIDERS: Internal Medicine; Student in an Organized Health Care Education/Training Program; ADMIT Internal Medicine
PROC: 3E0336Z Introduction of Nutritional Substance into Peripheral Vein, Percutaneous Approach (ICD-10-PCS; principal; 2024-11-09)
DX: K85.20 Alcohol induced acute pancreatitis without necrosis or infection (principal); E44.0 Moderate protein-calorie malnutrition; F10.939 Alcohol use, unspecified with withdrawal, unspecified; F11.20 Opioid dependence, uncomplicated; Z68.1 Body mass index [BMI] 19.9 or less, adult; K86.1 Other chronic pancreatitis; D63.8 Anemia in other chronic diseases classified elsewhere; I10 Essential (primary) hypertension; D69.6 Thrombocytopenia, unspecified; E87.8 Other disorders of electrolyte and fluid balance, not elsewhere classified; K74.60 Unspecified cirrhosis of liver; Z76.5 Malingerer [conscious simulation]; Z90.49 Acquired absence of other specified parts of digestive tract; Z88.8 Allergy status to other drugs, medicaments and biological substances; Z91.030 Bee allergy status; Z91.038 Other insect allergy status; Z88.5 Allergy status to narcotic agent; Z91.010 Allergy to peanuts; Z98.890 Other specified postprocedural states; K80.20 Calculus of gallbladder without cholecystitis without obstruction; K56.41 Fecal impaction
CPT/HCPCS: 36415; 71046; 74177; 74183; 80048; 80053; 80076; 81001; 82728; 83540; 83550; 83690; 83735; 83880; 84100; 84478; 84484; 85025; 85610; 87086; 93005; 93010; 96361; 96374; 96375; 96376; 99285-25; A9270; A9579; J0696; J1171; J1650; J1790; J1885; J2060; J2405; J2470; J2765; J3010; J3411; J7030; J7120; Q9967

== ENCOUNTER 2024-12-16 23:33 | Inpatient (IN) | payer OTHER ==
[~2024-12-16] VITALS: Ht 177.8 cm; Wt 61.5 kg
[~2024-12-16 23:33] MED LIST changes: +DOCU100 PO; +LACT10SY PO; +ONDA4ODT MM; +PANT20 PO
[2024-12-17] MEDS ORDERED: NS 1,000 ML IV SCH (00:15)
[2024-12-17 00:25] LABS: Base Excess Venous -7.4 mmol/L; Bicarbonate Venous 20.1 mmol/L (24.0-30.0); pH Blood Venous 7.54 (7.34-7.37)
[2024-12-17 00:26] LABS: BASOPHILS ABSOLUTE AUTO 0.07 K/mm3 (0.00-0.23); BASOPHILS PERCENT AUTO 1 % (0-2); EOSINOPHILS PERCENT AUTO 1 % (0-6); Hematocrit 33.7 % (37.0-53.0); Hemoglobin 11.7 g/dL (13.5-17.5); IMMATURE GRAN ABSOLUTE AUTO 0.02 K/mm3 (0.00-0.10); IMMATURE GRAN PERCENT AUTO 0 % (0-1); LYMPHOCYTES ABSOLUTE AUTO 1.74 K/mm3 (0.84-5.20); LYMPHOCYTES PERCENT AUTO 24 % (21-46); MONOCYTES ABSOLUTE AUTO 0.94 K/mm3 (0.16-1.47); MONOCYTES PERCENT AUTO 13 % (4-13); Mean Corpuscular HGB 29.3 pg (26.0-34.0); Mean Corpuscular HGB Conc 34.7 g/dL (31.5-36.5); Mean Corpuscular Volume 85 fL (80-100); Mean Platelet Volume 9.3 fL (9.1-12.4); NEUTROPHILS ABSOLUTE AUTO 4.41 K/mm3 (1.96-9.15); NEUTROPHILS PERCENT AUTO 61 % (41-73); Platelet Count 184 K/mm3 (150-400); RDW Coefficient Variation 15.1 % (11.7-14.2); RDW Standard Deviation 46.5 fL (35.1-46.3); Red Blood Cell Count 3.99 M/mm3 (4.30-5.90); White Blood Cell Count 7.28 K/mm3 (4.00-11.30)
[2024-12-17 00:36] LABS: Source, Urine Clean Catch
[2024-12-17 00:48] LABS: Appearance, Urine Clear (Clear); Blood, Urine 2+ (Neg); Color, Urine Amber (P-Yellow); Glucose Qualitative, Urine Neg (Neg); Ketones, Urine 1+ (Neg); Leukocyte Esterase, Urine 1+ (Neg); Nitrite, Urine Neg (Neg); Protein, Urine 1+ (Neg); Urobilinogen, Urine 2+ (Normal)
[2024-12-17 00:48] LABS: Ethanol (Alcohol), Blood, Med <3 mg/dL
[2024-12-17 00:49] LABS: Acetaminophen, Random <2.0 ug/mL (10.0-30.0); Alanine Aminotransfer (ALT/SGP 23 U/L (12-78); Albumin, Blood 3.5 g/dL (3.4-5.0); Albumin/Globulin Ratio 0.7 (0.8-1.8); Alk Phos 281 U/L (50-136); Anion Gap 14 mmol/L (3-11); Aspartate Aminotrans (AST/SGOT 34 U/L (12-37); Bilirubin, Total 2.1 mg/dL (0.1-1.0); Blood Urea Nitrogen 16 mg/dL (8-24); Bun/Creatinine Ratio 17.1 (12.0-20.0); CO2, Blood 18 mmol/L (21-32); Calcium, Blood 9.5 mg/dL (8.5-10.1); Chloride, Blood 115 mmol/L (98-108); Creatinine, Blood 0.93 mg/dL (0.60-1.20); Globulin, Blood 4.8 g/dL (2.2-4.0); Glomerular Filtration Rate 100 (60-); Glucose, Blood 112 mg/dL (70-99); Potassium, Blood 4.2 mmol/L (3.5-5.5); Salicylate <1.7 mg/dL (2.8-20.0); Sodium, Blood 143 mmol/L (136-145); Total Protein, Blood 8.3 g/dL (6.4-8.2)
[2024-12-17 00:54] LABS: Bilirubin, Urine 1+ (Neg)
[2024-12-17 00:57] LABS: Bacteria Few /hpf; Hyaline Casts 0-2 /lpf (0-2); Squamous Epithelial Cells Few /hpf (Few); White Blood Cells, Urine 0-2 /hpf (0-5)
[2024-12-17 01:03] LABS: U Amphetamine Screen Not Detected; U Barbituate Screen Not Detected; U Benzodiazapine Screen Not Detected; U Buprenorphine Screen Not Detected; U Cannabinoids Screen Not Detected; U Cocaine Screen Not Detected; U Methadone Screen Not Detected; U Methamphetamine Screen Not Detected; U Opiates Screen DETECTED; U Oxycodone Screen DETECTED; U Phencyclidine Screen Not Detected
[2024-12-17] MEDS ORDERED: Midazolam HCl 1MG / ML 2ML Vial IV SCH (01:25)
[2024-12-17] MEDS ORDERED: Lactulose 20 GM/30 ML UDC PO ONE (03:40)
[2024-12-17] MEDS ORDERED: Ondansetron HCl 2 MG / ML 2ML Vial IV PRN (03:45)
[2024-12-17] MEDS ORDERED: FLU VACC TS2024-25(6MOS UP)/PF 45 MCG/0.5 ML SYRINGE IM ONE (03:50)
[2024-12-17] MEDS ORDERED: CefTRIAXone Sodium 1,000 MG in NS 100 ML IV SCH (03:59)
[2024-12-17] MEDS ORDERED: Lactated Ringer's 1,000 ML IV SCH (04:00)
[2024-12-17 05:28] VITALS: BP 156/106
[2024-12-17 05:46] LABS: Bicarbonate Venous 21.1 mmol/L (24.0-30.0); PCO2 Venous 20.4 mmHg (38-42); pH Blood Venous 7.52 (7.34-7.37)
[2024-12-17] MEDS ORDERED: Lactulose 200 GM/300 ML Enema 300ML BTL PR SCH (06:00)
[2024-12-17 06:15] LABS: Albumin, Blood 3.4 g/dL (3.4-5.0); Albumin/Globulin Ratio 0.7 (0.8-1.8); Bilirubin, Total 2.3 mg/dL (0.1-1.0); Bun/Creatinine Ratio 18.5 (12.0-20.0); Calcium, Blood 9.3 mg/dL (8.5-10.1); Creatinine, Blood 0.81 mg/dL (0.60-1.20); Globulin, Blood 4.8 g/dL (2.2-4.0); Potassium, Blood 3.8 mmol/L (3.5-5.5); Total Protein, Blood 8.2 g/dL (6.4-8.2)
[2024-12-17 07:01] LABS: BASOPHILS ABSOLUTE AUTO 0.06 K/mm3 (0.00-0.23); BASOPHILS PERCENT AUTO 1 % (0-2); EOSINOPHILS ABSOLUTE AUTO 0.01 K/mm3 (0.00-0.68); EOSINOPHILS PERCENT AUTO 0 % (0-6); Hematocrit 33.1 % (37.0-53.0); Hemoglobin 11.4 g/dL (13.5-17.5); IMMATURE GRAN ABSOLUTE AUTO 0.02 K/mm3 (0.00-0.10); IMMATURE GRAN PERCENT AUTO 0 % (0-1); LYMPHOCYTES ABSOLUTE AUTO 1.11 K/mm3 (0.84-5.20); LYMPHOCYTES PERCENT AUTO 14 % (21-46); MONOCYTES ABSOLUTE AUTO 0.87 K/mm3 (0.16-1.47); MONOCYTES PERCENT AUTO 11 % (4-13); Mean Corpuscular HGB 29.2 pg (26.0-34.0); Mean Corpuscular HGB Conc 34.4 g/dL (31.5-36.5); Mean Corpuscular Volume 85 fL (80-100); Mean Platelet Volume 9.1 fL (9.1-12.4); NEUTROPHILS ABSOLUTE AUTO 5.65 K/mm3 (1.96-9.15); NEUTROPHILS PERCENT AUTO 73 % (41-73); Platelet Count 178 K/mm3 (150-400); RDW Coefficient Variation 15.3 % (11.7-14.2); Red Blood Cell Count 3.91 M/mm3 (4.30-5.90); White Blood Cell Count 7.72 K/mm3 (4.00-11.30)
--- NOTE | 2024-12-17 07:31 | NUR ---
SHIFT SUMMARY PATIENT ARRIVED TO PCU 17 VIA STRETCHER. SLIDE TRANSFER COMPLETED DUE TO ALTERED MENTAL STATUS. PATIENT OPENS EYES AND MOVES SPONTANEOUSLY. EYES DO NOT TRACK MOVEMENT OR FOLLOW DIRECTIONS. EXTREMITIES BECOME STIFF WHEN DOING ADL'S MAKING IT DIFFICULT TO OBTAIN BLOOD PRESSURE. LUNG SOUNDS COARSE THROUGHOUT, PATIENT IS TACHYPNIC, SPO2 >95% ON ROOM AIR. SINUS TACH ON TELE. FIRST LACTULOSE ENEMA COMPLETED. WILL CONTINUE TO MONITOR. CALL LIGHT WITHIN REACH.
[2024-12-17 07:50] VITALS: BP 168/97
[2024-12-17] MEDS ORDERED: Lactobacil 2-S.Thermo-Bifido 1 1 Cap PO SCH (09:00)
[2024-12-17] MEDS ORDERED: Enoxaparin 40 MG/0.4 ML SYR SC SCH (09:00)
[2024-12-17] MEDS ORDERED: Acetaminophen 325 MG Supp PR PRN (10:20)
--- NOTE | 2024-12-17 11:45 | NUR ---
MORNING SUMMARY THE PT CONTINUES TO HAVE AMS, AND DOES NOT FOLLOW COMMANDS. HE IS ORIENTEDX0. THE PT HAS BEEN THRASHING IN BED, TRYING TO ATTEMPT OOB, AND NOT CALLING FOR NEEDS. DR. AGUILA TO BED AND OKAY'D A TOR VEST D/T SAFETY. THE PT'S KATI IRWIN WAS UPDATED THIS MORNING AND INFORMED OF TOR VEST RESTRAINT. HER NUMBER IS [phone]. THE PT HAS BEEN HAVING MULTIPLE LOOSE STOOLS D/T LACTULOSE ENEMAS. NPO D/T MENTATION. RECTAL TUBE ATTEMPTED, UNSUCCESSFUL D/T AGGITATION. DISCUSSED WITH UX CONSULTANT. WILL ATTEMPT AGAIN THIS AFTERNOON WITH UX CONSULTANT. LR RUNNING PER EMAR. ZOFRAN GIVEN FOR NAUSEA, NO EMESIS NOTED THIS MORNING. FREQUENT SUCTION FOR SECRETIONS. PT ON RA, SP02 >9%. BREATHING TACHYPEANIC, BUT UNLABORED. ON TELE HE HAS BEEN ST W/BBB 100'S-130'S, PROVIDERS AWARE. SEE NOTES FOR UPDATES.
[2024-12-17 12:24] VITALS: BP 170/101
--- NOTE | 2024-12-17 14:42 | NUR ---
PT STARTED HAVING MODERATE EPISTAXIS. DR. AGUILA ON THE UNIT AND WANTS PRESSURE HELD TO THE NOSE. SHE WILL CHECK LABS. SEE NOTES FOR UPDATES.
--- NOTE | 2024-12-17 15:57 | NUR ---
EPISTAXIS IN LEFT NARE CONTINUED AFTER HOLDING PRESSURE FOR FIVE MINUTES. RHINO ROCKET ORDERED FOR CONTINUED BLEED. BREANNA FRAZIER CAME TO ROOM AND EVALUATED THE PT. HE RECOMMENDED THE PT TO HAVE HIS NOSE CLAMPED FOR 30MINS THEN IF THE BLEEDING CONTINUES TO CALL HIM BACK AND HE WILL PLACE A RHINO ROCKET. NASAL CLAMP IN PLACE. PT IS BECOMING MORE ALERT BUT IS AGGITATED, CUSSING AT STAFF IN FULL SENTENCES, AND FIGHTING AGAINST CARE. DISCUSSED WITH NEEDLE GRINDER.
[2024-12-17 15:58] LABS: International Normalized Ratio 1.42; Prothrombin Time Results 14.8 Sec (9.7-11.5)
[2024-12-17] MEDS ORDERED: Thiamine HCl 500 MG in NS 100 ML IV SCH (16:00)
[2024-12-17 16:25] VITALS: BP 152/79
--- NOTE | 2024-12-17 18:24 | NUR ---
PT MOVED TO ROOM 8 FOR CLOSER OBSERVATION BY THE NURSES STATION. PT REMAINS IN A TOR VEST. HE IS ALERT AND ORIENTED TO SELF AND NOW SPEAKING IN FULL SENTENCES BUT IS STILL AGGITATED/CONFUSED. HE IS ORIENTED TO SELF. THE PT HAS BEEN RECIEVING LACTULOSE ENEMAS AND HAS HAD MULTIPLE FORMED AND LOOSE BOWEL MOVEMENTS. RECTAL TUBE NOT APPROPRIATE. HE IS ON RA AND DENIES SOB. HE DID HAVE A FEVER AND TYLENOL WAS GIVEN [place]. ON TELE HE IS ST 100. BP STABLE. SEE NOTES FOR UPDATES.
[2024-12-17 20:30] VITALS: BP 162/86
[2024-12-17] MEDS ORDERED: Lactulose 20 GM/30 ML UDC PO SCH (21:00)
[2024-12-17] MEDS ORDERED: NS 250 ML IV PRN (23:25)
[2024-12-17 23:36] VITALS: BP 157/95
[2024-12-18] VITALS (8 sets, daily range): BP systolic 141–168; BP diastolic 74–107
[2024-12-18 03:36] LABS: Base Excess Venous -3.6 mmol/L; Bicarbonate Venous 22.8 mmol/L (24.0-30.0); PCO2 Venous 21.1 mmHg (38-42); pH Blood Venous 7.55 (7.34-7.37)
[2024-12-18 03:39] LABS: BASOPHILS ABSOLUTE AUTO 0.06 K/mm3 (0.00-0.23); BASOPHILS PERCENT AUTO 1 % (0-2); EOSINOPHILS ABSOLUTE AUTO 0.02 K/mm3 (0.00-0.68); EOSINOPHILS PERCENT AUTO 0 % (0-6); Hematocrit 31.8 % (37.0-53.0); Hemoglobin 11.1 g/dL (13.5-17.5); IMMATURE GRAN ABSOLUTE AUTO 0.05 K/mm3 (0.00-0.10); IMMATURE GRAN PERCENT AUTO 0 % (0-1); LYMPHOCYTES ABSOLUTE AUTO 2.42 K/mm3 (0.84-5.20); LYMPHOCYTES PERCENT AUTO 21 % (21-46); MONOCYTES ABSOLUTE AUTO 1.57 K/mm3 (0.16-1.47); MONOCYTES PERCENT AUTO 14 % (4-13); Mean Corpuscular HGB 29.4 pg (26.0-34.0); Mean Corpuscular HGB Conc 34.9 g/dL (31.5-36.5); Mean Corpuscular Volume 84 fL (80-100); Mean Platelet Volume 9.4 fL (9.1-12.4); NEUTROPHILS ABSOLUTE AUTO 7.43 K/mm3 (1.96-9.15); NEUTROPHILS PERCENT AUTO 64 % (41-73); Platelet Count 169 K/mm3 (150-400); RDW Coefficient Variation 15.1 % (11.7-14.2); RDW Standard Deviation 46.2 fL (35.1-46.3); Red Blood Cell Count 3.78 M/mm3 (4.30-5.90); White Blood Cell Count 11.55 K/mm3 (4.00-11.30)
[2024-12-18 04:00] LABS: Magnesium, Blood 1.5 mg/dL (1.6-2.4)
[2024-12-18 04:01] LABS: Albumin/Globulin Ratio 0.7 (0.8-1.8); Bilirubin, Total 2.6 mg/dL (0.1-1.0); Bun/Creatinine Ratio 16.4 (12.0-20.0); Calcium, Blood 8.7 mg/dL (8.5-10.1); Creatinine, Blood 0.61 mg/dL (0.60-1.20); Globulin, Blood 4.4 g/dL (2.2-4.0); Phosphorus, Blood 2.1 mg/dL (2.5-4.9); Potassium, Blood 2.8 mmol/L (3.5-5.5); Total Protein, Blood 7.4 g/dL (6.4-8.2)
[2024-12-18] MEDS ORDERED: Potassium Chloride 20 MEQ TabCR PO SCH (04:15)
--- NOTE | 2024-12-18 04:25 | NUR ---
SHIFT SUMMARY. PT CONDITION HAS BEEN STABLE THROUGHOUT SHIFT. MENTATION HAS SOMEWHAT FLUCTUATED WITH PT AT TIMES ORIENTED EXCLUSIVELY TO SELF, AT OTHER TIMES ABLE TO TELL ME WHERE HE IS AND WHO HIS FIANCE IS. HAS BEEN IN TOR VEST THROUGHOUT SHIFT D/T IMPULSIVE BEHAVIOR, HIGH FALL RISK. 1:[address] THROUGHOUT SHIFT WELL. PT AT TIMES REDIRECTABLE AND AT OTHER TIMES VERY DIFFICULT TO REDIRECT. BP HAS BEEN ELEVATED AT TIMES ALTHOUGH TENDS TO COINCIDE WITH PATIENT THRASHING AROUND, TENSING. HAS BEEN RUNNING SINUS THROUGHOUT SHIFT. HAS MAINTAINED ADEQUATE SATURATION ON ROOM AIR. EARLY IN SHIFT, WAS INCONTINENT BUT THROUGHOUT MOST OF LATTER HALF OF SHIFT HAS BEEN ABLE TO REQUEST BEDPAN AND URINAL APPROPRIATELY. PT REMAINS VERY WEAK, CONFUSED, IMPULSIVE, FREQUENTLY VERY AGITATED AND ANXIOUS. DESPITE THIS, THERE ARE SOME PERIODS OF TIME WHERE PT IS ABLE TO RELAX IN BED. AT SHIFT ONSET, PT WAS MUCH MORE ALERT THAN HE HAD BEEN FOR REST OF DAY PRIOR PER DAY SHIFT REPORT. ATTEMPTED TO GIVE PT FLUIDS WHICH PT TOLERATED VERY WELL AND HAS SINCE CONSUMED MORE THAN 1500 ML WITH NO PROBLEMS. SPOKE WITH HOSPITALIST YING WHO SWITCHED LACTULOSE ENEMAS TO PO LACTULOSE. PT HAS TOLERATED PO PILLS AND FLUIDS WELL. DENIES PAIN OUTSIDE OF THAT ASSOCIATED WITH TOR THAT IS ALLEVIATED WITH REPOSITIONING. BED LOCKED IN LOWEST POSITION. TOR REMAINS IN PLACE. RESTRAINT MANAGEMENT Q2. 1:[address] CONTINUING TO MONITOR.
[2024-12-18] MEDS ORDERED: Potassium Chloride 60 MEQ IV ONE (05:30)
[2024-12-18] MEDS ORDERED: Potassium Chloride 20 MEQ in NS 90 ML IV SCH (06:10)
[2024-12-18] MEDS ORDERED: Mag Sulfate 1 GM/D5% 100ML 100 ML IV STA (07:05)
--- NOTE | 2024-12-18 07:51 | NUR ---
ASSUMED CARE AT 0700. PT IS AROUSABLE, ALERT, AND ORIENTED X3. HE IS COOPERATING WITH CARE AND OBEYING COMMANDS. TRIALING PATIENT OFF OF TOR. TOR STILL IN PLACE ON PATIENT, BUT NOT SECURED TO BED. PT RESTING COMFORTABLY IN BED AT THIS TIME WITH 1:1 SITTER.
[2024-12-18] MEDS ORDERED: HYDROcodone 5-APAP 325 TAB PO PRN (08:50)
[2024-12-18] MEDS ORDERED: OxyCODONE HCL 10 MG TABCR PO PRN (09:30)
[2024-12-18 12:44] LABS: Bun/Creatinine Ratio 15.5 (12.0-20.0); Calcium, Blood 8.8 mg/dL (8.5-10.1); Creatinine, Blood 0.52 mg/dL (0.60-1.20); Magnesium, Blood 1.9 mg/dL (1.6-2.4); Potassium, Blood 3.2 mmol/L (3.5-5.5)
[2024-12-18] MEDS ORDERED: Potassium Chloride 40 MEQ in NS 250 ML IV ONE (13:10)
[2024-12-18] MEDS ORDERED: OxyCODONE HCL 15 MG TAB.SR.12H PO PRN (16:05)
[2024-12-18] MEDS ORDERED: OxyCODONE HCL 5 MG TAB PO ONE (16:05)
[2024-12-18] MEDS ORDERED: OxyCODONE HCL 5 MG TAB PO PRN (16:15)
[2024-12-18] MEDS ORDERED: Amylase/Lipase/Protease DR Cap 12,000 PO SCH (17:30)
--- NOTE | 2024-12-18 17:50 | NUR ---
SHIFT SUMMARY MENTATION CONTINUES TO IMPROVE. PT IS A/OX3, BUT DOES NOT REMEMBER HOW HE GOT HERE. PT VERY ANXIOUS TO LEAVE HOSPITAL. THIS RN SPOKE WITH PT REGARDING GOALS OF TREATMENT AND PARAMETERS FOR RETURNING HOME SAFELY. PT STATES HE UNDERSTANDS AND IS COOPERATIVE WITH CARE AT THIS TIME. COMPLAINING OF 10/10 T/O SHIFT, NOTIFIED, SEE NEW ORDERS. BP IN 150'S SYSTOLIC, OTHER VSS. PT REMAINED UNRESTRAINED FOR THE ENTIRETY OF THE SHIFT WITHOUT ISSUE. X4 LOOSE BOWEL MOVEMENTS TODAY. CONTINUING LACTULOSE. PT REPORTED INTERMITTENT NAUSEA.
[2024-12-18] MEDS ORDERED: Promethazine HCl 25 MG Tab PO ONE (20:15)
[2024-12-19] MEDS ORDERED: Potassium Chl 20MEQ/Water100ML 100 ML IV ONE (00:50)
[2024-12-19] MEDS ORDERED: Potassium Chloride 20 MEQ in NS 90 ML IV ONE (01:30)
--- NOTE | 2024-12-19 01:53 | NUR ---
SHIFT SUMMARY NEURO: A/OX4. MOVES ALL EXTREMETIES WITH EQUAL STRENGTH. PERRLA. UNSTEADY GAIT. COOPERATIVE THIS SHIFT. SITTER AT BEDSIDE. CARDIAC: NSR, QT INTERVAL PROLONGED .43. ZOFRAN DELAYED. POTASSIUM RECHECKED AT 0000- 20MEQ ORDERED. LUNGS: WNL-RA GI: TENDER ABD THROUGHOUT. BASELINE PAIN. UNMEASURED EMESIS. CONSTANT NAUSEA. SKIN: HOT TO TOUCH, FLUSHED. PT REPORTS THEY TAKE 3-4, 5MG OXY EVERY HOUR AT HOME.
[2024-12-19 04:44] VITALS: BP 155/94
[2024-12-19 05:02] LABS: Base Excess Venous -3.6 mmol/L; Bicarbonate Venous 22.2 mmol/L (24.0-30.0); PCO2 Venous 29.3 mmHg (38-42); pH Blood Venous 7.45 (7.34-7.37)
[2024-12-19 05:05] LABS: BASOPHILS ABSOLUTE AUTO 0.09 K/mm3 (0.00-0.23); BASOPHILS PERCENT AUTO 1 % (0-2); EOSINOPHILS ABSOLUTE AUTO 0.22 K/mm3 (0.00-0.68); EOSINOPHILS PERCENT AUTO 2 % (0-6); Hematocrit 35.3 % (37.0-53.0); IMMATURE GRAN ABSOLUTE AUTO 0.04 K/mm3 (0.00-0.10); IMMATURE GRAN PERCENT AUTO 0 % (0-1); LYMPHOCYTES ABSOLUTE AUTO 2.96 K/mm3 (0.84-5.20); LYMPHOCYTES PERCENT AUTO 26 % (21-46); MONOCYTES ABSOLUTE AUTO 1.38 K/mm3 (0.16-1.47); MONOCYTES PERCENT AUTO 12 % (4-13); Mean Corpuscular Volume 85 fL (80-100); Mean Platelet Volume 9.3 fL (9.1-12.4); NEUTROPHILS ABSOLUTE AUTO 6.93 K/mm3 (1.96-9.15); NEUTROPHILS PERCENT AUTO 60 % (41-73); Platelet Count 189 K/mm3 (150-400); RDW Coefficient Variation 14.8 % (11.7-14.2); RDW Standard Deviation 46.2 fL (35.1-46.3); Red Blood Cell Count 4.14 M/mm3 (4.30-5.90); White Blood Cell Count 11.62 K/mm3 (4.00-11.30)
[2024-12-19 05:21] LABS: International Normalized Ratio 1.54
[2024-12-19 05:26] LABS: Magnesium, Blood 1.7 mg/dL (1.6-2.4)
[2024-12-19 05:27] LABS: Albumin/Globulin Ratio 0.7 (0.8-1.8); Bilirubin, Total 2.9 mg/dL (0.1-1.0); Bun/Creatinine Ratio 15.7 (12.0-20.0); Calcium, Blood 8.5 mg/dL (8.5-10.1); Creatinine, Blood 0.51 mg/dL (0.60-1.20); Globulin, Blood 4.4 g/dL (2.2-4.0); Phosphorus, Blood 2.2 mg/dL (2.5-4.9); Potassium, Blood 3.7 mmol/L (3.5-5.5); Total Protein, Blood 7.4 g/dL (6.4-8.2)
[2024-12-19 08:15] VITALS: BP 151/96
[2024-12-19 12:30] VITALS: BP 148/78
[2024-12-19] MEDS ORDERED: Nitroglycerin 0.4 MG SUBL SL PRN (14:20)
[2024-12-19] MEDS ORDERED: TiZANidine HCl 4 MG Tab PO PRN (14:20)
--- NOTE | 2024-12-19 16:49 | NUR ---
UPDATE DISCHARGE INSTRUCTIONS PROVIDED TO PT. PT EDUCATED ON NEW MEDICATIONS. ALL QUESTIONS ANSWERED. PT PROVIDED HARD SCRIPT. PT AWAITING RIDE AND WILL BE TAKEN OUT VIA
[2024-12-20] MEDS ORDERED: Pantoprazole Sodium 20 MG Tab PO SCH (06:00)
[2024-12-20] MEDS ORDERED: Docusate Sodium 100 MG Cap PO SCH (09:00)
[2024-12-20] MEDS ORDERED: Polyethylene Glycol 3350 17 gm PO SCH (09:00)
== END 2024-12-19 17:01 | disposition home or self-care (01) | DRG 441 ==
LOC: ER 23:33 → PCU 12-17 03:44 → ERHOLD 12-17 03:44 → PCU 12-17 05:02
PROVIDERS: Emergency Medicine; Internal Medicine; Student in an Organized Health Care Education/Training Program; ADMIT Student in an Organized Health Care Education/Training Program
DX: K76.82 Hepatic encephalopathy (principal); E43 Unspecified severe protein-calorie malnutrition; G92.8 Other toxic encephalopathy; E87.21 Acute metabolic acidosis; E87.3 Alkalosis; F10.239 Alcohol dependence with withdrawal, unspecified; F11.20 Opioid dependence, uncomplicated; R65.10 Systemic inflammatory response syndrome (SIRS) of non-infectious origin without acute organ dysfunction; K86.1 Other chronic pancreatitis; E87.6 Hypokalemia; E86.0 Dehydration; G47.00 Insomnia, unspecified; Z96.653 Presence of artificial knee joint, bilateral; Z96.641 Presence of right artificial hip joint; F10.229 Alcohol dependence with intoxication, unspecified; K74.69 Other cirrhosis of liver; E04.1 Nontoxic single thyroid nodule; R45.1 Restlessness and agitation; Z88.5 Allergy status to narcotic agent; Z91.010 Allergy to peanuts; Z88.8 Allergy status to other drugs, medicaments and biological substances; Z91.030 Bee allergy status; Z79.899 Other long term (current) drug therapy; Z90.49 Acquired absence of other specified parts of digestive tract; Z98.890 Other specified postprocedural states; Z87.81 Personal history of (healed) traumatic fracture; Z68.23 Body mass index [BMI] 23.0-23.9, adult; Z28.29 Immunization not carried out because of patient decision for other reason
CPT/HCPCS: 36415; 51701; 70450; 71260; 74177; 80048; 80053; 80320; 81001; 82140; 82803; 82947; 83605; 83690; 83735; 84100; 84132; 85025; 85610; 85730; 87040; 87086; 93005; 93010; 94760; 94762; 96360-59; 96361; 99285-25; A9270; G0480; J0696; J2405; J3411; J3475; J3480; J7030; J7050; J7120; Q9967

== ENCOUNTER 2024-12-29 12:09 | Emergency (ER) | payer OTHER ==
[~2024-12-29] VITALS: Ht 172.7 cm; Wt 88.5 kg
[2024-12-29] MEDS ORDERED: Ondansetron HCl 2 MG / ML 2ML Vial IV PRN (12:25)
[2024-12-29 12:53] LABS: BASOPHILS ABSOLUTE AUTO 0.11 K/mm3 (0.00-0.23); BASOPHILS PERCENT AUTO 1 % (0-2); EOSINOPHILS PERCENT AUTO 1 % (0-6); Hematocrit 38.5 % (37.0-53.0); Hemoglobin 13.4 g/dL (13.5-17.5); IMMATURE GRAN ABSOLUTE AUTO 0.05 K/mm3 (0.00-0.10); IMMATURE GRAN PERCENT AUTO 1 % (0-1); LYMPHOCYTES ABSOLUTE AUTO 2.01 K/mm3 (0.84-5.20); LYMPHOCYTES PERCENT AUTO 23 % (21-46); MONOCYTES ABSOLUTE AUTO 0.84 K/mm3 (0.16-1.47); MONOCYTES PERCENT AUTO 10 % (4-13); Mean Corpuscular HGB 29.1 pg (26.0-34.0); Mean Corpuscular HGB Conc 34.8 g/dL (31.5-36.5); Mean Corpuscular Volume 84 fL (80-100); Mean Platelet Volume 9.7 fL (9.1-12.4); NEUTROPHILS ABSOLUTE AUTO 5.62 K/mm3 (1.96-9.15); NEUTROPHILS PERCENT AUTO 64 % (41-73); Platelet Count 201 K/mm3 (150-400); RDW Coefficient Variation 14.6 % (11.7-14.2); RDW Standard Deviation 44.3 fL (35.1-46.3); Red Blood Cell Count 4.61 M/mm3 (4.30-5.90); White Blood Cell Count 8.73 K/mm3 (4.00-11.30)
[2024-12-29 13:35] LABS: Albumin, Blood 3.4 g/dL (3.4-5.0); Albumin/Globulin Ratio 0.7 (0.8-1.8); Bun/Creatinine Ratio 22.6 (12.0-20.0); Calcium, Blood 9.4 mg/dL (8.5-10.1); Creatinine, Blood 0.67 mg/dL (0.60-1.20); Globulin, Blood 4.7 g/dL (2.2-4.0); Potassium, Blood 4.4 mmol/L (3.5-5.5); Total Protein, Blood 8.1 g/dL (6.4-8.2)
[2024-12-29] MEDS ORDERED: OxyCODONE HCL 5 MG TAB PO ONE (15:00)
[2024-12-29] MEDS ORDERED: Acetaminophen 500 MG Tab PO ONE (15:00)
[2024-12-29] MEDS ORDERED: Gabapentin 300 MG Cap PO ONE (15:00)
[2024-12-29 16:05] LABS: Source, Urine Clean Catch
[2024-12-29 16:10] LABS: Appearance, Urine Clear (Clear); Blood, Urine Neg (Neg); Color, Urine Amber (P-Yellow); Glucose Qualitative, Urine Neg (Neg); Ketones, Urine 1+ (Neg); Leukocyte Esterase, Urine 1+ (Neg); Nitrite, Urine Neg (Neg); Protein, Urine 1+ (Neg); Specific Gravity, Urine 1.025 (1.003-1.022); Urobilinogen, Urine 2+ (Normal)
[2024-12-29] MEDS ORDERED: OXYACE7.5T PO (16:11)
[2024-12-29 16:16] LABS: Bilirubin, Urine 1+ (Neg)
[2024-12-29 16:20] LABS: Calcium Oxalate Crystals Many /hpf
[2024-12-29 16:21] LABS: Other Crystals Few /hpf; Red Blood Cells, Urine 0-2 /hpf (0-2)
[2024-12-29 16:22] LABS: Bacteria Few /hpf; Squamous Epithelial Cells Few /hpf (Few)
== END 2024-12-29 16:36 | disposition home or self-care (01) ==
LOC: ER 12:09
PROVIDERS: Emergency Medicine
DX: K86.1 Other chronic pancreatitis (principal); Z76.0 Encounter for issue of repeat prescription; Z90.49 Acquired absence of other specified parts of digestive tract; Z88.5 Allergy status to narcotic agent; Z88.6 Allergy status to analgesic agent; Z91.010 Allergy to peanuts; Z91.030 Bee allergy status; Z79.899 Other long term (current) drug therapy
CPT/HCPCS: 80053; 81001; 83690; 84484; 85025; 87086; 93005; 93010; 96374; 99284-25; A9270; J2405